=== PATIENT | male | born 1955 | race African-American/Black ===

== ENCOUNTER 2017-09-29 18:44 | Inpatient (IN) | payer MEDICARE, OTHER ==
[~2017-09-29] VITALS: Ht 190.5 cm; Wt 94.0 kg
[2017-09-29] MEDS ORDERED: NALOXONE HCL 0.4 MG/ML AMP IV PUSH PRN (22:15)
[2017-09-29] MEDS ORDERED: ACETAMINOPHEN 325 MG TAB PO PRN (22:15)
[2017-09-29] MEDS ORDERED: MAGNESIUM HYDROXIDE SUSP 30 ML CUP PO PRN (22:15)
[2017-09-29] MEDS ORDERED: ONDANSETRON HCL 4 MG/2 ML VIAL IVP PRN (22:15)
[2017-09-29] MEDS ORDERED: ACETAMINOPHEN/HYDROcodone 325 MG/10 MG TAB PO PRN (22:15)
[2017-09-29] MEDS ORDERED: BISACODYL 10 MG SUPP RECTAL PRN (22:15)
[2017-09-29] MEDS ORDERED: SENNOSIDES 8.6 MG TAB PO PRN (22:15)
[2017-09-29] MEDS ORDERED: SODIUM CHLORIDE 0.9% FLUSH 10 ML FLUSH IV FLUSH PRN (22:15)
[2017-09-29] MEDS ORDERED: LOSA50TA PO (22:24)
[2017-09-29] MEDS ORDERED: INSU1INJ5 SQ (22:24)
[2017-09-29] MEDS ORDERED: OXYC1TAB36 PO (22:24)
[2017-09-29] MEDS ORDERED: GADODIAMIDE PF 287 MG/ML 5 ML VIAL (for RAD MRI) IV PUSH ONE (23:43)
--- NOTE | 2017-09-29 23:43 | HHI.HP ---
[facility] Unknown Admission Diagnosis Spinal Metastatic Cancer with hemiparesis . 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 Marítnez is a 61 y/o male with a history of type 2 diabetes mellitus with peripheral neuropathy, hypertension, and hepatitis C (treatment completed 2 years ago) who presented to [facility] [place] transfer from [facility] in [place] for neurosurgical evaluation and treatment of widespread metastatic spinal cancer with hemiparesis. The patient is seen in his hospital room. He reports severe 10/10 back pain that radiates around to his chest that is unrelieved by [email or web address]. He states that his symptoms began one month ago with back pain radiating around to his chest. His symptoms persisted until he developed an inability to ambulate one week ago and he started to seek treatment at [facility]. He states they could not find anything wrong with him. He went to [facility] on Tuesday and was diagnosed with a "left lung infection" and given antibiotics. He says he returned to [place] on Tuesday because he was still too weak to walk. On Tuesday, he was admitted. He states that no one knows what is wrong with him. He denies fever, chills, nausea, vomiting, diarrhea, abdominal pain, urinary or fecal incontinence. He reports he had constipation on Tuesday and it was relieved with laxatives on Tuesday. He reports a 25 pound weight loss that is unintentional over the past 2 months. Review of Systems Except as stated in HPI: all other systems reviewed are Neg Past Family Social History Past Medical History Type 2 diabetes mellitus x 8 years Peripheral neuropathy secondary to diabetes Hypertension History of hepatitis C treated 2 years ago "Heat" related syncope (8-9 years ago)- never evaluated for, no recurrence . Past Surgical History Right knee arthroscopy 25 years ago . Reported Medications Reported Meds & Active Scripts Active Reported Oxycodone-Acetaminophen 10-325 mg Tab 1 Tab PO Q6HR Losartan (Losartan Potassium) 50 Mg Tab 50 Mg PO DAILY Levemir Flextouch Pen Inj (Insulin Detemir) 300 unit/3 ML Pen 30 Units SQ HS Allergies: Coded Allergies: No Known Allergies (Unverified , 09/29/17) Family History Mother with diabetes mellitus Father with hypertension and kidney failure Sister with diabetes mellitus . Social History Tobacco: states he smokes every now and again - one cigarette every few months Alcohol: was drinking 4 tallboy beers daily until 2 weeks ago Illicit Drugs: smoked cocaine as recently as two months ago, denies IV drug use . Physical Exam Physical Exam GENERAL: Well-nourished, well-developed patient; pleasant and cooperative. Tearful when discussing diagnosis. SKIN: Warm and dry. HEAD: Normocephalic. EYES: No scleral icterus. No injection or drainage. NECK: Supple, trachea midline. No JVD or lymphadenopathy. CARDIOVASCULAR: Regular rate and rhythm without murmurs, gallops, or rubs. RESPIRATORY: Breath sounds diminished at bases, equal bilaterally. No accessory muscle use. GASTROINTESTINAL: Abdomen soft, non-tender, nondistended. EXTREMITIES: No cyanosis, or edema. NEUROLOGICAL: Awake, alert, and oriented x 3. Hip flexion is 2/5 bilaterally, seems very slightly weaker on left than right; ankle flexion 4+/5. Hand lifts and cranes inspector bilaterally 5-/5. Shoulder shrug equal. . Laboratory Laboratory Tests Test 09/29/17 21:55 Nasal Screen MRSA (PCR) MRSA NOT DETECTED Imaging Last Impressions Thoracic Spine MRI 09/29/17 0000 Signed Impressions: Service Date/Time: September 23:08 - CONCLUSION: 1. There is widespread metastatic disease to the thoracic spine. At the level of T4 tumor extends into the spinal canal with at least moderate compression on the thoracic cord from the lateral aspect bilaterally. There is also extensive soft tissue tumor in the neural foramina bilaterally and in the paravertebral soft tissues at this level. 2. Questionable mild pathologic fracture of T8 and possibly T7. Alberto Moses MD Lumbar Spine MRI 09/29/17 0000 Signed Impressions: Service Date/Time: September 23:08 - CONCLUSION: 1. Widespread bony metastatic disease to the lumbar spine. There is soft tissue tumor invasion of the spinal canal at L2 with effacement of the lateral recesses bilaterally and encasement of the exiting right L2 nerve root. There is also extension of enhancing tumor into the paravertebral soft tissues. No acute fracture or spondylolisthesis. MD Karey Winston VTE Risk Assessment Caprini VTE Risk Assessment: Mod/High Risk (score >= 2) Caprini Risk Assessment Model Point Value = 1 Point Value = 2 Point Value = 3 Point Value = 5 Age 41-60 Minor surgery BMI > 25 kg/m2 Swollen legs Varicose veins or History of unexplained or recurrent spontaneous Oral contraceptives or hormone replacement Sepsis (< 1 month) Serious lung disease, including pneumonia (< 1 month) Abnormal pulmonary function Acute myocardial infarction Congestive heart failure (< 1 month) History of inflammatory bowel disease Medical patient at bed rest Age 61-74 Arthroscopic surgery Major open surgery (> 45 min) Laparoscopic surgery (> 45 min) Malignancy Confined to bed (> 72 hours) Immobilizing plaster cast Central venous access Age >= 75 History of VTE Family history of VTE Factor V Leiden Prothrombin [id number] Lupus anticoagulant Anticardiolipin antibodies Elevated serum homocysteine Heparin-induced thrombocytopenia Other congenital or acquired thrombophilia Stroke (< 1 month) Elective arthroplasty Hip, pelvis, or leg fracture Acute spinal cord injury (< 1 month) Prophylaxis Regimen Total Risk Factor Score Risk Level Prophylaxis Regimen 0-1 Low Early ambulation 2 Moderate Order ONE of the following: *Sequential Compression Device (SCD) *Heparin 5000 units SQ BID 3-4 Higher Order ONE of the following medications: *Heparin 5000 units SQ TID *Enoxaparin/Lovenox 40 mg SQ daily (WT < 150 kg, CrCl > 30 mL/min) *Enoxaparin/Lovenox 30 mg SQ daily (WT < 150 kg, CrCl > 10-29 mL/min) *Enoxaparin/Lovenox 30 mg SQ BID (WT < 150 kg, CrCl > 30 mL/min) AND/OR *Sequential Compression Device (SCD) 5 or more Highest Order ONE of the following medications: *Heparin 5000 units SQ TID (Preferred with Epidurals) *Enoxaparin/Lovenox 40 mg SQ daily (WT < 150 kg, CrCl > 30 mL/min) *Enoxaparin/Lovenox 30 mg SQ daily (WT < 150 kg, CrCl > 10-29 mL/min) *Enoxaparin/Lovenox 30 mg SQ BID (WT < 150 kg, CrCl > 30 mL/min) AND *Sequential Compression Device (SCD) Assessment and Plan Problem List: (1) 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 Martínez is a 61 y/o male with a history of type 2 diabetes mellitus with peripheral neuropathy, hypertension, and hepatitis C (treatment completed 2 years ago) who presented to [facility] [place] transfer from [facility] in [place] for neurosurgical evaluation and treatment of widespread metastatic spinal cancer with hemiparesis. Metastatic Spinal Cancer with unknown primary site - consult neurosurgery - consult oncology - Decadron 4 mg IV q6h - Oxycodone 10/325 q4h p.o. PRN pain > 4 - Morphine 4 mg IV q3h PRN breakthrough pain - continuous cardiac telemetry to monitor for arrhythmia - neurochecks q4h - VS q4h - NPO - discussed diagnosis and plan with patient Hypertension - resume home losartan - monitor trends in blood pressure and adjust treatment as indicated Type 2 DM - continue home Levemir - accuchecks AC and HS with low dose Novolog - monitor trends in blood glucose readings and adjust treatments as indicated - PRN hypoglycemia treatment protocol DVT prophylaxis - SCDs Discussed Condition With Dr. Sarkar, patient, and RN . Physician Certification 2 Midnight Certification Type: Admission for Inpatient Services Order for Inpatient Services The services are ordered in accordance with Medicare regulations or non- Medicare payer requirements, as applicable. In the case of services not specified as inpatient-only, they are appropriately provided as inpatient services in accordance with the 2-midnight benchmark. Estimated LOS (days): 7 days is the estimated time the patient will need to remain in the hospital, assuming treatment plan goals are met and no additional complications. Post-Hospital Plan: Not yet determined Ana Cristina Cohen Sep 29, 2017 23:43
[2017-09-30] VITALS (10 sets, daily range): BP systolic 144–152; BP diastolic 81–99; PULSE 74–87; RESP 12–25; TEMP 97.7–97.9; O2SAT 98–100
[2017-09-30] MEDS: DEXAMETHASONE SOD PHOS 4 MG/ML VIAL IV PUSH SCH ×4 (00:29→18:00)
--- NOTE | 2017-09-30 00:58 | RADRPT ---
EXAM DATE/TIME: 09/29/2017 23:08 [facility] COMPARISON: No previous studies available for comparison. INDICATIONS : Inability to ambulate. Cancer. CONTRAST: 18 cc Omniscan (gadodiamide) IV MEDICAL HISTORY : None. SURGICAL HISTORY : Right knee. ENCOUNTER: Initial ACUITY: 1 week PAIN SCORE: 5/10 LOCATION: Thoracic spine. TECHNIQUE: Multiplanar multisequence MRI of the thoracic spine was performed. FINDINGS: There is widespread bony metastatic disease throughout the thoracic spine. At the T4 level abnormal e nhancing tumor extends outside the vertebral body into the paravertebral soft tissues and into the sp inal canal there is at least moderate cord compression and effacement of the thecal sac around the co rd. There is also extension of tumor into the lateral recesses and neural foramina bilaterally. No other cord compression identified within the thoracic spine. Now suspected mild pathologic fractur es involving T7 and T8. No spondylolisthesis. CONCLUSION: 1. There is widespread metastatic disease to the thoracic spine. At the level of T4 tumor extends int o the spinal canal with at least moderate compression on the thoracic cord from the lateral aspect bi laterally. There is also extensive soft tissue tumor in the neural foramina bilaterally and in the pa ravertebral soft tissues at this level. 2. Questionable mild pathologic fracture of T8 and possibly T7. Alberto Moses MD on September 30, 2017 at 0:50 Board Certified Radiologist. This report was verified electronically.
--- NOTE | 2017-09-30 01:22 | RADRPT ---
EXAM DATE/TIME: 09/29/2017 23:08 [facility] COMPARISON: No previous studies available for comparison. INDICATIONS : Inability to ambulate. Cancer. CONTRAST: 18 cc Omniscan (gadodiamide) IV MEDICAL HISTORY : None. SURGICAL HISTORY : Right knee. ENCOUNTER: Initial ACUITY: 1 week PAIN SCORE: 5/10 LOCATION: Lower back. TECHNIQUE: Multiplanar multisequence MRI of the lumbar spine was performed with and without contrast. FINDINGS: There is widespread metastatic disease to the lumbar spine. At the level of L2 abnormal soft tissue e xtends into the paravertebral space and also into the spinal canal with moderate effacement of the la teral recesses bilaterally. There is also tumor encasement of the exiting right L2 nerve root at the level of the neural foramen. No acute fracture or spondylolisthesis. No discrete disc protrusion. Conus medullaris is intact. CONCLUSION: 1. Widespread bony metastatic disease to the lumbar spine. There is soft tissue tumor invasion of the spinal canal at L2 with effacement of the lateral recesses bilaterally and encasement of the exiting right L2 nerve root. There is also extension of enhancing tumor into the paravertebral soft tissues. No acute fracture or spondylolisthesis. lAberto Moses MD on September 30, 2017 at 1:17 Board Certified Radiologist. This report was verified electronically.
[2017-09-30] MEDS: SODIUM CHLOR 0.9% 1000 ML INJ 1,000 ML IV SCH ×2 (01:27→08:53)
[2017-09-30] MEDS: MORPHINE SULFATE 2 MG/ML INJ IV PUSH PRN ×2 (02:07→06:14)
[2017-09-30] MEDS ORDERED: GLUCAGON 1 MG/ML VIAL OTHER PRN (03:30)
[2017-09-30] MEDS ORDERED: DEXTROSE 50% IN WATER 50 ML VIAL(D50) IV PUSH PRN ×2 (03:30→14:45)
[2017-09-30] MEDS ORDERED: oxyCODONE/ACETAMINOPHEN 10 MG/325 MG TAB PO PRN (03:45)
--- NOTE | 2017-09-30 05:35 | RADRPT ---
EXAM DATE/TIME: 09/30/2017 04:58 [facility] COMPARISON: No previous studies available for comparison. INDICATIONS : Evaluate for pneumonia. MEDICAL HISTORY : Metastatic disease to the thoracic spine SURGICAL HISTORY : Right knee. ENCOUNTER: Initial ACUITY: 1 day PAIN SCORE: 0/10 LOCATION: Bilateral chest FINDINGS: A single view of the chest demonstrates linear atelectasis or scarring at the lung bases. No effusion . No pneumothorax. Tortuous aorta. Mild scoliosis. CONCLUSION: 1. Linear atelectasis or scarring at the lung bases. No effusion or pneumothorax. Alberto Moses MD on September 30, 2017 at 5:33 Board Certified Radiologist. This report was verified electronically.
[2017-09-30] MEDS ORDERED: oxyCODONE/ACETAMINOPHEN 10 MG/325 MG TAB PO SCH (06:00)
[2017-09-30 06:17] LABS: AUTOMATED NEUTROPHIL # 1.4 TH/MM3 (1.8-7.7); BASOPHIL % 0.5 % (0.0-2.0); EOSINOPHIL % 0.1 % (0.0-4.0); HEMATOCRIT 39.6 % (39.0-51.0); HEMOGLOBIN 13.6 GM/DL (13.0-17.0); LYMPH % 42.1 % (9.0-44.0); LYMPHOCYTE # 1.1 TH/MM3 (1.0-4.8); MEAN CORPUSCULAR HEMOGLOBIN 31.4 PG (27.0-34.0); MEAN CORPUSCULAR HGB CONC 34.5 % (32.0-36.0); MEAN PLATELET VOLUME 8.5 FL (7.0-11.0); MONO % 3.6 % (0.0-8.0); MONOCYTE # 0.1 TH/MM3 (0-0.9); NEUT % 53.7 % (16.0-70.0); PLATELET COUNT 238 TH/MM3 (150-450); RED BLOOD COUNT 4.34 MIL/MM3 (4.50-5.90); RED CELL DISTRIBUTION WIDTH 14.9 % (11.6-17.2); WHITE BLOOD COUNT 2.6 TH/MM3 (4.0-11.0)
[2017-09-30 06:41] LABS: ALKALINE PHOSPHATASE 134 U/L (45-117); TOTAL BILIRUBIN ADULT 0.5 MG/DL (0.2-1.0); TOTAL PROTEIN 9.4 GM/DL (6.4-8.2)
[2017-09-30 06:49] LABS: ALBUMIN 3.5 GM/DL (3.4-5.0); ALT (GPT) 70 U/L (12-78); AST (GOT) 83 U/L (15-37); BICARBONATE 23.5 MEQ/L (21.0-32.0); BLOOD UREA NITROGEN 13 MG/DL (7-18); CALCIUM 9.6 MG/DL (8.5-10.1); CHLORIDE 99 MEQ/L (98-107); CREATININE 0.87 MG/DL (0.60-1.30); GLOMERULAR FILTRATION RATE 108 ML/MIN (>89); GLUCOSE,RANDOM 390 MG/DL (74-106); SODIUM (NA) 132 MEQ/L (136-145)
--- NOTE | 2017-09-30 08:31 | PD.CONS ---
HPI Consult Requested By Reason for Consult Extensive metastatic disease burden involving the thoracic and lumbar spine with resultant weakness of the lower extremities. Primary Care Physician Unknown History of Present Illness Mr. Martínez is a 61-year-old male who wit history of hypertension and diabetes mellitus who developed increasing back pain. His pain started in the mid back and progressed to involve the anterolateral wall of his chest. He had multiple ER visits at [facility]. One week ago the pain worsened and he developed weakness in his legs. He reports not being able to stand or walk since Tuesday. He presented to the [facility] last night and underwent imaging studies of the lumbar vertebral bodies and was noted to have extensive metastases. He was found to have spinal cord compression and he was transferred to [facility] for neurosurgical evaluation. His legs are getting progressively weaker. He developed numbness in his chest and lower body. He underwent thoracic and lumbar spine MRI with and without contrast which revealed widespread metastatic disease to the thoracic spine with moderate to severe compression of the thoracic spinal cord at T4. Questionable pathologic fracture of T8 and T7. A lumbar vertebral body MRI with and without contrast revealed additional widespread bony metastatic disease with invasion of the spinal canal at the level of L2. There was extensive tumor extension was noted in the paravertebral soft tissues. Neurosurgical consultation was requested Review of Systems Constitutional: COMPLAINS OF: Fatigue, Dizziness, Change in appetite, DENIES: Diaphoretic episodes, Fever, Weight gain, Weight loss, Chills, Night Sweats Endocrine: DENIES: Heat/cold intolerance, Polydipsia, Polyuria, Polyphagia Eyes: DENIES: Blurred vision, Diplopia, Eye inflammation, Eye pain, Vision loss , Photosensitivity, Double Vision Ears, nose, mouth, throat: DENIES: Tinnitus, Hearing loss, Vertigo, Nasal discharge, Oral lesions, Throat pain, Hoarseness, Ear Pain, Running Nose, Epistaxis, Sinus Pain, Toothache, Odynophagia Respiratory: DENIES: Apneas, Cough, Snoring, Wheezing, Hemoptysis, Sputum production, Shortness of breath Cardiovascular: DENIES: Chest pain, Palpitations, Syncope, Dyspnea on Exertion , PND, Lower Extremity Edema, Orthopnea, Claudication Gastrointestinal: DENIES: Abdominal pain, Black stools, Bloody stools, Constipation, Diarrhea, Nausea, Vomiting, Difficulty Swallowing, Anorexia Genitourinary: DENIES: Sexual dysfunction, Urinary frequency, Urinary incontinence, Urgency, Hematuria, Dysuria, Nocturia, Penile Discharge, Testicular Pain, Testicular Swelling Musculoskeletal: COMPLAINS OF: Joint pain, Muscle aches, Back pain, Neck pain, DENIES: Stiffness, Joint Swelling Hematologic/lymphatic: DENIES: Bruising, Lymphadenopathy Immunologic/allergic: DENIES: Eczema, Urticaria Neurologic: COMPLAINS OF: Localized weakness, DENIES: Abnormal gait, Headache, Paresthesias, Seizures, Speech Problems, Tremor, Poor Balance Psychiatric: DENIES: Anxiety, Confusion, Mood changes, Depression, Hallucinations, Agitation, Suicidal Ideation, Homicidal Ideation, Delusions Past Family Social History Allergies: Coded Allergies: No Known Allergies (Unverified , 09/29/17) Past Medical History 1. arterial Hypertension. 2. Type 2 diabetes. Past Surgical History Arthroscopic right knee surgery about 25 years ago. Colonoscopy Reported Medications Mother is living; she has heart disease. Father several years ago of heart and kidney failure. Active Ordered Medications He lives at home with his mother. He has three grown children. He is single. 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 Occasional smoker. He has never been a daily smoker. He reports drinking about 4 cans of beer daily. Physical Exam Vital Signs Vital Signs Date Time Temp Pulse Resp B/P (MAP) Pulse Ox O2 Delivery O2 Flow Rate FiO2 09/30/17 06:19 15 09/30/17 06:00 87 09/30/17 04:00 97.9 79 21 150/81 (104) 98 09/30/17 04:00 87 09/30/17 02:00 84 09/30/17 00:00 97.7 83 25 144/90 (108) 100 09/30/17 00:00 83 Physical Exam The patient is alert, awake and oriented to time, place and person. Speech is fluent. Higher cognitive functions are normal. Cranial nerve examination demonstrates the pupils to be equal, round, and reactive to light. Extra-ocular movements are intact. Facial motor and sensory function are normal and symmetrical. Gross hearing is intact, bilaterally. The uvula is midline and elevates symmetrically with the soft palate. Sternocleidomastoid and trapezius muscles have normal and symmetrical strength. Other cranial nerves are intact. Neck is soft and supple. Cervical spine has a full range of motion in anterior flexion, extension, lateral bending, and rotation without pain. There is no tenderness to palpation to the spinous processes or paraspinal muscles. Muscle testing reveals normal bulk and increased tone with spasticity. Muscle strength is 5/5 in all muscle groups of both upper extremities including deltoid , biceps, triceps, brachioradialis, wrist extension and dental billing specialist. In the lower extremities, strength is 2/5 in both iliopsoas, quadriceps, hamstrings, plantar flexion, dorsiflexion, and extensor hallicus longus. Left lower extremity is worse than the right. Sensory examination is intact to light touch and sharp/dull discrimination in both upper extremities, with a sensory level at T4-T6 Deep tendon reflexes are 2+ and symmetrical in the biceps, triceps, and brachioradialis, bilaterally, in the upper extremities. In the lower extremities , the patellar and Achilles are 3+, bilaterally. There is a bilateral Babinsky. There is no clonus Cerebellar examination is intact to [id number] test, rapid rhythmic alternating motion. There is no dysmetria Lungs are clear Heart regular rhtythm and rate Skin dry and warm Laboratory Laboratory Tests Test 09/29/17 21:55 09/30/17 04:48 Nasal Screen MRSA (PCR) MRSA NOT DETECTED White Blood Count 2.6 Red Blood Count 4.34 Hemoglobin 13.6 Hematocrit 39.6 Mean Corpuscular Volume 91.0 Mean Corpuscular Hemoglobin 31.4 Mean Corpuscular Hemoglobin Concent 34.5 Red Cell Distribution Width 14.9 Platelet Count 238 Mean Platelet Volume 8.5 Neutrophils (%) (Auto) 53.7 Lymphocytes (%) (Auto) 42.1 Monocytes (%) (Auto) 3.6 Eosinophils (%) (Auto) 0.1 Basophils (%) (Auto) 0.5 Neutrophils # (Auto) 1.4 Lymphocytes # (Auto) 1.1 Monocytes # (Auto) 0.1 Eosinophils # (Auto) 0.0 Basophils # (Auto) 0.0 CBC Comment AUTO DIFF Differential Comment AUTO DIFF CONFIRMED Blood Urea Nitrogen 13 Creatinine 0.87 Random Glucose 390 Total Protein 9.4 Albumin 3.5 Calcium Level 9.6 Alkaline Phosphatase 134 Aspartate Amino Transf (AST/SGOT) 83 Alanine Aminotransferase (ALT/SGPT) 70 Total Bilirubin 0.5 Sodium Level 132 Potassium Level 4.3 Chloride Level 99 Carbon Dioxide Level 23.5 Anion Gap 10 Estimat Glomerular Filtration Rate 108 Result Diagram: 09/30/178 09/30/178 Imaging Last 48 hours Impressions Chest X-Ray 09/30/17 0000 Signed Impressions: Service Date/Time: Saturday, September 30, 2017 04:58 - CONCLUSION: 1. Linear atelectasis or scarring at the lung bases. No effusion or pneumothorax. Alberto Moses MD Thoracic Spine MRI 09/29/17 0000 Signed Impressions: Service Date/Time: September 23:08 - CONCLUSION: 1. There is widespread metastatic disease to the thoracic spine. At the level of T4 tumor extends into the spinal canal with at least moderate compression on the thoracic cord from the lateral aspect bilaterally. There is also extensive soft tissue tumor in the neural foramina bilaterally and in the paravertebral soft tissues at this level. 2. Questionable mild pathologic fracture of T8 and possibly T7. Alberto Moses MD Lumbar Spine MRI 09/29/17 0000 Signed Impressions: Service Date/Time: September 23:08 - CONCLUSION: 1. Widespread bony metastatic disease to the lumbar spine. There is soft tissue tumor invasion of the spinal canal at L2 with effacement of the lateral recesses bilaterally and encasement of the exiting right L2 nerve root. There is also extension of enhancing tumor into the paravertebral soft tissues. No acute fracture or spondylolisthesis. Alberto Moses MD Assessment and Plan Assessment and Plan Mr. Martínez is a 61-year-old male who has been referred to [facility] from [facility] for further work-up and evaluation of spinal cord compression. Progressive lower paraparesis Attending Statement Neuro Spinal cord compression at the level of T4 with spinal cord canal encroachment at L2 as well, however, his symptoms are related to the cord compression at T4 I reviewed his MRI of the cervical spine. No mets. He will need MRI of the brain in the future He has a severe thoracic myelopathy with paraparesis. His PSA is normal. He is deteriorating rapidly clinically. I recommend an urgent surgical decmpression of the thoracic spinal cord, with possible arthrodhesis. We have discussed the details including the [id number] details of the surgical procedure, its indications, alternatives, risks, and potential complications. Risks and potential complications include, but are not limited to, infection, blood loss, CSF leak, partial or complete loss of sight in one or both eyes, paresis, paralysis, permanent pain or difficulty swallowing, loss of bowel or bladder function, complications from anesthesia, blood clot, stroke, myocardial infarction, or even . I have ordered CT imaging of the chest, abdomen and pelvis for metastatic workup have requested a PSA level. He will need tissue sampling for staging and diagnostic purposes. I have consulted radiation oncologist and siccussed the case with Jacqiu Lancaster. Following the decompression, he will need radiation to help control his metastatic disease to the spine Continue dexamethasone PT evaluation Pulmonary.. Continue aggressive pulmonary toilette, nasotracheal suction, and breathing treatments with nebulizers. Nutrition. NPO Renal. monitor closely urine output, BUN and creatinine Endocrine. Monitor serial Acu checks and SSI as needed in detail ID monitor for signs of infection Protonix for stress ulcer prophylaxis Hermann lawrence and SCD's for DVT prophylaxis. Bobo Gillette MD Sep 30, 2017 08:31
[2017-09-30] MEDS: SODIUM CHLORIDE 0.9% FLUSH 10 ML FLUSH IV FLUSH SCH ×2 (08:52→21:21)
[2017-09-30] MEDS: LOSARTAN 50 MG TAB PO SCH (08:52)
[2017-09-30] MEDS ORDERED: DIATRIZOATE MEGLUM/DIATRIZOATE SOD 9 ML CUP PO ONE (09:00)
[2017-09-30] MEDS ORDERED: IOHEXOL 350 MG/ML 10 ML VIAL (for RAD DIAG) IVCONTRAST ONE (09:42)
--- NOTE | 2017-09-30 09:53 | RADRPT ---
EXAM DATE/TIME: 09/30/2017 09:27 [facility] COMPARISON: MRI THORACIC SPINE W & W/O CONTRAST, September 29, 2017, 23:08. INDICATIONS : Spinal metastases. RADIATION DOSE: 22.95 CTDIvol (mGy) MEDICAL HISTORY : Diabetes mellitus type 2. Hypertension. SURGICAL HISTORY : None. ENCOUNTER: Initial ACUITY: 1 day PAIN SCALE: 0/10 LOCATION: neck TECHNIQUE: Volumetric scanning of the cervical spine was performed. Multiplanar reconstructions in the sagittal, coronal and oblique axial planes were performed. Using automated exposure control and adjustment o f the mA and/or kV according to patient size, radiation dose was kept as low as reasonably achievable to obtain optimal diagnostic quality images. DICOM format image data is available electronically f or review and comparison. FINDINGS: There is no acute fracture or prevertebral soft tissue swelling. No significant spinal stenosis is no kayli. Cervical spondylosis is noted at C5-6, C6-7, and C7-T1. The bony relationship and alignment betw een C1 and C2 is well maintained. Some mottling is noted within the lower cervical spine. MRI of the cervical spine with and without contrast would be much more sensitive to rule out metastatic disease if clinical indicated. The bony relationship and alignment between C1 and C2 is well maintained. Mild left neural foraminal narrowing is noted C5-6, C6-7, and C7-T1. CONCLUSION: 1. Some mottling of the lower cervical spine. MRI of the cervical spine with and without contrast wou ld be much more sensitive to rule out metastatic disease if clinically indicated. 2. No acute fracture or prevertebral soft tissue swelling. 3. Cervical spondylosis at C5-6, C6-7 and C7-T1. 4. Mild left neural foraminal narrowing at C5-6, C6-7 and C7-T1. Michael Cuevas MD on September 30, 2017 at 9:44 Board Certified Radiologist. This report was verified electronically.
--- NOTE | 2017-09-30 10:02 | RADRPT ---
EXAM DATE/TIME: 09/30/2017 09:33 [facility] COMPARISON: MRI THORACIC SPINE W & W/O CONTRAST, September 29, 2017, 23:08. MRI LUMBAR SPINE W & W/O CONTRAST, [facility] 2017, 23:08. INDICATIONS : Spinal metastases. IV CONTRAST: 95 cc Omnipaque 350 (iohexol) IV ; Cumulative dose for multiple exams. ORAL CONTRAST: No oral contrast ingested. RADIATION DOSE: 13.98 CTDIvol (mGy) ; Combined studies - Thorax/Abdomen/Pelvis MEDICAL HISTORY : Diabetes mellitus type 2. Hypertension. SURGICAL HISTORY : None. ENCOUNTER: Initial ACUITY: 1 day PAIN SCALE: 0/10 LOCATION: abdomen TECHNIQUE: Volumetric scanning of the abdomen and pelvis was performed. Using automated exposure control and ad justment of the mA and/or kV according to patient size, radiation dose was kept as low as reasonably achievable to obtain optimal diagnostic quality images. DICOM format image data is available electro nically for review and comparison. FINDINGS: Minimal bibasilar parenchymal changes are evident. Mild compensated cardiomegaly The liver and gallbladder are unremarkable Spleen and pancreas appear normal The adrenal glands are normal Symmetric renal function without renal mass There is no adrenal adenopathy Pelvic contents are unremarkable Review of bone windows reveals scattered lucencies throughout the thoracolumbar spine CONCLUSION: Widespread bony metastatic disease. Site of primary is not identified in the abdomen or pelvis. Ant Rod MD FACR on September 30, 2017 at 9:58 Board Certified Radiologist. This report was verified electronically.
--- NOTE | 2017-09-30 10:05 | RADRPT ---
EXAM DATE/TIME: 09/30/2017 09:33 [facility] COMPARISON: No previous studies available for comparison. INDICATIONS : Spinal metastases. IV CONTRAST: 95 cc Omnipaque 350 (iohexol) IV ; Cumulative dose for multiple exams. RADIATION DOSE: 13.98 CTDIvol (mGy) ; Combined studies - Thorax/Abdomen/Pelvis MEDICAL HISTORY : Diabetes mellitus type 2. Hypertension. SURGICAL HISTORY : None. ENCOUNTER: Initial ACUITY: 1 day PAIN SCALE: 0/10 LOCATION: chest TECHNIQUE: Volumetric scanning of the chest was performed. Using automated exposure control and adjustment of t he mA and/or kV according to patient size, radiation dose was kept as low as reasonably achievable to obtain optimal diagnostic quality images. DICOM format image data is available electronically for review and comparison. Follow-up recommendations for detected pulmonary nodules are based at a minimum on nodule size and pa tient risk factors according to Fleischner Society Guidelines. FINDINGS: Bibasilar parenchymal changes without evidence for lung primary. There is minimal left axillary adenopathy. There is no mediastinal adenopathy. Review of bone windows reveals extensive widespread metastatic disease. Large paravertebral mass is seen at the T6 level. CONCLUSION: Widespread bony metastatic disease described in detail on MRI of the thoracic and lumbar spine. Sagi ttal primary is not evident in the chest Minimal bibasilar parenchymal changes Minimal nonspecific axillary adenopathy.. Ant Rod MD FACR on September 30, 2017 at 10:01 Board Certified Radiologist. This report was verified electronically.
--- NOTE | 2017-09-30 10:06 | MB ---
cc: LATHA BLANCA MD DATE OF CONSULTATION 09/30/2017 DATE OF 1955 Consult requested by the ER physicians. REASON FOR CONSULTATION Extensive metastatic disease burden involving the thoracic and lumbar spine with resultant weakness of the lower extremities. Primary concern is for widespread underlying neoplasm. CHIEF COMPLAINT Mr. Martínez reports a two-month history of progressive back pain which started in the lumbar area and then spread to his upper back as well. He reports developing weakness of his legs one week ago to the point where he has not been able to stand. HISTORY OF PRESENT ILLNESS Mr. Martínez is a 61-year-old male from [place], [place]. Mr. Martínez reports having a history of hypertension and diabetes and follows with the [facility]. He tells me he had been in reasonably good health up until about two months ago. He began to notice increasing back pain which initially started in the lower back and then progressed to involve his chest. He had multiple ER visits at [facility] for this. One week ago the pain worsened and he developed weakness in his legs. He reports not being able to stand or walk. He presented to the [facility] last night and underwent imaging studies of the lumbar vertebral bodies and was noted to have extensive metastases. He was assessed to have spinal cord compression and was transferred to [facility] for neurosurgical evaluation. At [facility] on 09/29/2017 he underwent thoracic and lumbar spine MRI with and without contrast which revealed widespread metastatic disease to the thoracic spine with moderate compression of the thoracic spinal cord. Questionable pathologic fracture of T8 and T7. A lumbar vertebral body MRI with and without contrast revealed additional widespread bony metastatic disease with invasion of the spinal canal at the level of L2. Extensive tumor extension was noted in the paravertebral soft tissues as well. Neurosurgical evaluation is pending at this time. PAST MEDICAL HISTORY 1. Hypertension. 2. Type 2 diabetes. PAST SURGICAL HISTORY Arthroscopic right knee surgery about 25 years ago. ALLERGIES No known drug allergies. HEALTH MAINTENANCE He had a colonoscopy earlier this week which was reported to be normal. FAMILY HISTORY Mother is living; she has heart disease. Father several years ago of heart and kidney failure. SOCIAL HISTORY The patient lives at home with his mother. He has three grown children. He is single. 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 He reports being an occasional smoker. He has never been a daily smoker. He reports drinking about 4 cans of beer daily. ALLERGIES Current inpatient medications: 1. Dexamethasone 4 mg IV q.6h. 2. Oxycodone/acetaminophen 10/325 every 4 hours as needed for pain. 3. Senokot. 4. Colace. 5. Low-dose insulin sliding scale. 6. Losartan 50 mg p.o. daily. 7. Insulin Levemir 30 units subcu q.h.s. 8. Sodium chloride 100 cc per hour. REVIEW OF SYSTEMS A 13-point review of systems is obtained and the following are the pertinent positives and negatives: CONSTITUTIONAL: Weakness, loss of appetite, 25-pound weight loss over the past 3 months. He denies fevers or chills. HEENT: Denies headaches, blurry vision, difficulty swallowing, soreness of throat. RESPIRATORY: Denies difficulty breathing, cough or hemoptysis. He does report chest pain which radiates from his upper back. CARDIOVASCULAR: Denies angina-like chest pain, PND, orthopnea. Denies lower extremity swelling. GASTROINTESTINAL: Denies nausea, vomiting, diarrhea hematochezia, melena, abdominal distention. GENITOURINARY: No complaints of dysuria or hematuria. CENTRAL NERVOUS SYSTEM: Reports leg weakness but denies numbness. MUSCULOSKELETAL: Please see HPI for severe back pain. PHYSICAL EXAMINATION VITAL SIGNS: Temperature 97.9 degrees Fahrenheit, heart rate 87 beats per minute, respiratory rate 15, blood pressure 150/81, O2 sat 98% on room air. GENERAL APPEARANCE: Mr. Martínez is a 61-year-old male. He is lying in bed. He appears to be in no acute distress and has a pleasant disposition. HEENT: Head is atraumatic, normocephalic. Conjunctivae are not pale. Sclerae anicteric. EOMI. PERRLA. No pharyngeal erythema. NECK: No palpable cervical or supraclavicular lymphadenopathy. LUNGS: Good air movement bilaterally. No added breath sounds. HEART: Regular rate and rhythm, S1, S2. No obvious murmurs, rubs or gallops. ABDOMEN: Thin, soft, nontender, nondistended. No palpable organ enlargement, specifically hepatosplenomegaly. EXTREMITIES: No pretibial edema. No calf tenderness. NEUROLOGIC: He has decreased motor strength of the left leg, slightly decreased motor strength of the right leg. He has no other focal sensory or motor deficits. MUSCULOSKELETAL: Tenderness over the back. LABORATORY FINDINGS CBC dated 09/30/2017: WBC count 2.6, hemoglobin 13.6 gm/dl, hematocrit 40%, platelet count 238, absolute neutrophil count 1.4. Chemistries: Sodium 132, potassium 4.3, chloride 99, bicarb 23.5, BUN 13, creatinine 0.87, EGFR 108, random glucose 290, calcium 9.6, total bilirubin 0.5, AST 83, ALT 70, alkaline phosphatase 134, total protein 9.4, albumin 3.5. IMAGING STUDIES MRI of the thoracic and lumbar vertebral bodies indicates widespread bony metastatic disease with tumor extending at the level of T4 into the spinal canal with at least moderate compression of the thoracic spinal cord. Questionable pathologic fracture of T8 and possibly T7. L2 vertebral body effacement with invasion of the spinal canal at the level of L2. Also enhancing tumor into the paravertebral soft tissues. Chest x-ray dated 09/30/2017 indicates linear atelectasis and scarring at the lung bases. ASSESSMENT Mr. Martínez is a 61-year-old male who has been referred to [facility] from [facility] for further work-up and evaluation of spinal cord compression. The patient reports having symptoms of progressive lower and upper back pain for the past two months. For the past one week he has had leg weakness and has not been able to ambulate due to the pain and weakness. He was transferred to our facility for neurosurgical evaluation. The patient reports no previous history of oncologic diagnoses. RECOMMENDATIONS 1. Spinal cord compression at the level of T4 with spinal cord canal encroachment at the level of L2 as well: I have requested CT imaging of the chest, abdomen and pelvis to further identify visceral disease burden. I have requested a PSA level as I am concerned he may have an underlying prostate carcinoma which is metastatic. He will need tissue sampling for staging and diagnostic purposes. 2. I have consulted our radiation oncologist as well to evaluate this patient in case he may require urgent radiation to help control his metastatic disease burden and to ultimately decrease the risk of progression of his spinal cord compression. 3. Continue dexamethasone for the time being. 4. Await neurosurgical intervention/evaluation. MD TAINA Anrdews/MAXIMILIAN /7:37 AM /9:40 AM
[2017-09-30] MEDS: INSULIN ASPART SUPPLEMENTAL SCALE SQ SCH ×2 (10:25→12:00)
--- NOTE | 2017-09-30 10:25 | RADRPT ---
EXAM DATE/TIME: 09/30/2017 09:33 [facility] COMPARISON: MRI THORACIC SPINE W & W/O CONTRAST, September 29, 2017, 23:08. INDICATIONS : Spinal metastases. IV CONTRAST: 96 cc Omnipaque 350 (iohexol) IV ; Cumulative dose for multiple exams. RADIATION DOSE: ; Reconstructed from previous dataset, no dose MEDICAL HISTORY : Hypertension. Diabetes mellitus type 2. SURGICAL HISTORY : None. ENCOUNTER: Initial ACUITY: 1 day PAIN SCALE: 5/10 LOCATION: Bilateral Paraspinal TECHNIQUE: Volumetric scanning of the thoracic spine was performed. Multiplanar reconstructions in the sagittal , coronal and oblique axial planes were performed. Using automated exposure control and adjustment o f the mA and/or kV according to patient size, radiation dose was kept as low as reasonably achievable to obtain optimal diagnostic quality images. DICOM format image data is available electronically fo r review and comparison. FINDINGS: Minimal compression deformities are noted involving T6, T7, and T8. The known widespread marrow infil tration throughout the thoracic spine is much better visualized on the recent MRI. Kyphosis of the th oracic spine is noted. Scoliosis of the thoracic spine is also noted. Degenerative changes are noted. Paravertebral soft tissue mass extends outside the T4 vertebral body bilaterally. Soft tissue mass a lso results in spinal stenosis at the T4 level. CONCLUSION: Minimal compression deformities at T6, T7 and T8. Known widespread marrow infiltration throughout the thoracic spine is much better visualized on recent MRI. Paravertebral soft tissue mass at T4 results in some degree of spinal stenosis and extends along the lateral aspects of the vertebral body bilate rally. Scoliosis and degenerative changes of the thoracic spine. Michael Cuevas MD on September 30, 2017 at 10:15 Board Certified Radiologist. This report was verified electronically.
[2017-09-30] MEDS ORDERED: ceFAZolin INJ 1,000 MG VIAL IV ONE ×2 (12:00→18:25)
[2017-09-30] MEDS ORDERED: ONDANSETRON HCL 4 MG/2 ML VIAL IV ONE (12:00)
[2017-09-30] MEDS ORDERED: ROCURONIUM INJ 50 MG/5 ML SYRINGE IV PUSH ONE (12:00)
[2017-09-30] MEDS ORDERED: NEOSTIGMINE 5 MG/5 ML SYRINGE IV PUSH ONE (12:00)
[2017-09-30] MEDS ORDERED: PHENYLEPH/NS 1000 MCG/10 ML SYR IV ONE (12:00)
[2017-09-30] MEDS ORDERED: LIDOCAINE HCL 1% PF 5 ML SYRINGE OTHER ONE (12:00)
[2017-09-30] MEDS ORDERED: PHENYLEPHRINE HCL 10 MG/ML VIAL IV ONE (12:00)
[2017-09-30] MEDS ORDERED: DEXAMETHASONE SOD PHOS 4 MG/ML VIAL IV ONE (12:00)
[2017-09-30] MEDS ORDERED: NORMOSOL R INJ 3,000 ML IV ONE (12:00)
[2017-09-30] MEDS ORDERED: ePHEDrine/NS 25 MG/5 ML SYRINGE IV ONE (12:00)
[2017-09-30] MEDS ORDERED: GLYCOPYRROLATE 1 MG/5 ML SYRINGE IV PUSH ONE (12:00)
[2017-09-30] MEDS ORDERED: PROPOFOL 200 MG/20 ML AMP IV ONE (12:00)
[2017-09-30] MEDS ORDERED: PROPOFOL 500 MG/50 ML INJ 200 ML ONE (12:04)
[2017-09-30] MEDS ORDERED: ACETAMINOPHEN 1000 MG/100 ML 100 ML IV ONE (12:04)
[2017-09-30] MEDS ORDERED: HYDROmorphone HCL PF 2 MG/ML VIAL ONE (12:40)
--- NOTE | 2017-09-30 13:42 | MB ---
cc: LATHA DURON MD KROCHAK, RONALD J. M.D. VINAS, FEDERICO C. M.D. DATE OF : 1955 DATE OF CONSULTATION: 09/30/2017 REASON FOR CONSULTATION: This patient is being seen at the request of the referring physicians to give opinion and advice regarding use of radiation treatment for this gentleman's apparent metastatic cancer. HISTORY OF PRESENT ILLNESS This is a gentleman who lives in [facility]. Her EPO he reports a history of progressive pain over the past several months starting in his low back and progressively rising. This pain worsens and he began to develop weakness in his lower limbs. He subsequently presented to [facility] where diagnostic imaging suggested a possible cord compression. He was transferred to this facility. This gentleman underwent a series of investigations which included abdominal pelvic CT, CT scan of the chest, a cervical spine CT, a throacic spine CT, a lumbar spine and thoracic spine MRI. The thoracic spine MRI revealed widespread metastatic disease to the thoracic spine at the level of T4 tumor extends into the spinal canal with at least moderate compression of the thoracic vertebrae from the lateral aspect bilaterally. There is also extensive soft tissue tumor in the neural foramina bilaterally and in the paravertebral soft tissue. There is a questionable mild pathologic fracture in T7-T8. Lumbar spine MRI showed widespread bony metastatic disease to the lumbar spine. There is soft tissue tumor invasion of the spinal canal at L2 with effacement of the lateral recess bilaterally encasement of the existing right L2 nerve root. There is also extension of enhancing tumor into the paravertebral soft tissues. His CT scan the abdomen and pelvis reported widespread bony metastatic disease site of the primary was not identified. His CT scan of the chest revealed widespread bony metastatic disease primary is not evident on the chest there was minimal by a basilar parenchymal changes, minimal nonspecific axillary adenopathy. This patient was discussed over the telephone with both Dr. Gillette and Dr. Duron. Because there was no previous diagnosis of cancer and Dr. Gillette assessed that this gentleman was developing progressive leg weakness. It was elected to take him to the operating room today for decompression of the thoracic spine. Blood work revealed an AST elevated at 83 and alkaline phosphatase elevated at 134. His total protein 79.4 and his PSA within normal range of 0.11. PAST MEDICAL HISTORY/PAST SURGICAL HISTORY: The past medical surgical history is unremarkable. 1. Hypertension 2. Type 2 diabetes 3. Three arthroscopic surgery of his right knee. ALLERGIES NOT LISTED IN THE ELECTRONIC MEDICAL RECORD. FAMILY HISTORY AND SOCIAL HISTORY There is appears to be no family history of malignancy. He currently lives with his mother. 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 MEDICATIONS 1. Dexamethasone started Hospital 4 mg IV q.6 h. 2. Oxycodone / Acetaminophen and 10 / 325 q.4 h for pain 3. Senokot. 4. Colace 5. Insulin by sliding scale. 6. Losartan 50 mg daily. 7. Insulin. 8. Levemir 30 units at bedtime. ASSESSMENT AND PLAN: This gentleman has not been seen by myself were examined as he was taken to the operating room just prior to my arrival on the floor. I have taken the above from the notes in the hospital chart and the review of his radiology both from the reports and my personal review. In my discussion with Dr. Duron and Dr. Gillette I did agree with the approach. I believe decompression at the T4-5 level is necessary to give this gentleman his best chance of being able to walk and to recover fully in the future. It will also allow us to have tissue. After 7-10 days, we would need to start palliative radiation treatment both to the thoracic spine and the area at L2 where he has encroachment on the nerve roots. Undoubtedly he will require chemotherapy depending on the final pathology. We will be very happy to start his radiation treatment here, if he does get transferred back to [place] his radiation treatment can be delivered locally as can his chemotherapy. I will follow this gentleman while in the hospital. Any questions or concerns please do not hesitate to contact me. MD LEWIS Graf/dequan /12:34 PM /1:14 PM
[2017-09-30] MEDS ORDERED: INSULIN REGULAR 100 UNITS/100 ML NS ALGORITHM 2 IV PRN ×2 (14:45)
[2017-09-30] MEDS ORDERED: ceFAZolin 2 GM PREMIX 50 ML ONE (14:54)
[2017-09-30] MEDS ORDERED: GELFOAM SIZE 100 ONE (14:54)
[2017-09-30] MEDS ORDERED: THROMBIN (TOPICAL) 5,000 UNIT VIAL ONE (14:54)
[2017-09-30] MEDS ORDERED: GENTAMICIN SULFATE 80 MG/2 ML VIAL ONE (14:54)
[2017-09-30] MEDS ORDERED: GELATIN POWDER 1 GM PACKET ONE (14:54)
[2017-09-30] MEDS ORDERED: BUPIVACAINE/EPINEPHRINE 0.5% PF 30 ML VIAL ONE (14:56)
[2017-09-30] MEDS ORDERED: VANCOMYCIN HCL 1000 MG VIAL ONE (14:56)
[2017-09-30] MEDS ORDERED: MIDAZOLAM HCL 2 MG/2 ML VIAL ONE (15:22)
--- NOTE | 2017-09-30 16:44 | HHI.PR ---
Addendum to Inpatient Note Additional Information Reviewed chart. Patient was not in the room when attempted to see him. He went to radiology or radiation oncology. Toribio Valadez DO Sep 30, 2017 16:44
[2017-09-30] MEDS ORDERED: DO NOT ADM ANY ANTICOAGULANT DRUGS PRN (18:33)
[2017-09-30] MEDS: NS + KCL 20 MEQ INJ 1,000 ML IV SCH (18:56)
[2017-09-30] MEDS ORDERED: MORPHINE SULFATE 4 MG/ML INJ IV PUSH PRN (19:00)
[2017-09-30] MEDS ORDERED: ACETAMINOPHEN 325 MG TAB PO PRN (19:00)
[2017-09-30] MEDS ORDERED: ACETAMINOPHEN/HYDROcodone 325 MG/10 MG TAB PO PRN (19:00)
--- NOTE | 2017-09-30 19:03 | RADRPT ---
EXAM DATE/TIME: 09/30/2017 15:48 [facility] COMPARISON: No previous studies available for comparison. INDICATIONS : Fusion T3 to T5 with laminectomy at T4. MEDICAL HISTORY : Metastatic disease thoracic spine. SURGICAL HISTORY : Right knee. ENCOUNTER: Subsequent ACUITY: 3 days PAIN SCORE: Non-responsive. LOCATION: Thoracic spine. FINDINGS: A single lateral view of the thoracic spine was performed. A there appears to be in good alignment of the visualized portion of the thoracic spine with internal fixation devices in place.. CONCLUSION: Good alignment on this postoperative study. Burton Duncan MD on September 30, 2017 at 19:00 Board Certified Radiologist. This report was verified electronically.
--- NOTE | 2017-09-30 19:11 | PD.OP ---
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 He had multiple spinal metastases and severe stenbosis at T4-5 with compression of the spinal cord. He was getting rapidly worse. An urgent surgical decompression was indicated. The [id number] details of the procedure, indications, alternatives, risks and potential complications were fully discussed with the patient. The patient fully understood. All her questions were answered. No guarantees were given. She voiced requesting the procedure and provided informed consents. The patient was offered the alternative of delaying the procedure and continuing with nonsurgical management. DETAILS OF THE SURGICAL PROCEDURE After the induction of general anesthesia, endotracheal intubation was performed. Electrodes were placed for electrophysiological monitoring of te somatosensorial evoked potentials, EMG, and motor evoked potentials prior to the intubation and kept thorough the procedure. A Evangelista catheter, bilateral AICHA hose, and sequential compression devices were placed and kept throughout the procedure. The patient was carefully log-rolled to the prone position on a Thanh table. All pressure points were carefully padded with eggcrate mattress. The eyes were tapped shut after ointment was applied by the anesthesiologist to prevent corneal abrasion. The head was supported by a foam pad, with special care to avoid pressure over the eyes. A Iggy hugger was placed over the exposed lower body to maintain control of the core body temperature. The electrophysiological team placed the needles and electrodes in their proper location and baseline SSEP's and motor evoked potentials were registered. The posterior thoracic region was prepped and draped in the usual sterile fashion. A localizing X-ray was performed with the C-arm, with Ap and lateral xray views. A medial incision was outlined from the spinous process of T4 down to T5. Surgical Approach A midline skin incision was made with a #10 blade. Dissection was carried out through the posterior cervical fascia with a Bovie. The spinous process of T4 and T5 were exposed and a subperiosteal dissection was performed over the spinous process, lamina lateral masses of T4 and T5. Bilateral self retaining retractors were placed on incision. Surgical decompression The operative microscope was draped in the usual sterile fashion and brought to the field. The rest of the surgical procedure was performed using microdissection technique with the exception of the closure. Under the operative microscope, the laminas at T4 and T5 and the spinous processes were carefully drilled using the TPS drill with a 5m cutting yanique. The ligamentum Flavum and joint facets were carefully removed. A large amount of epidural tumor was seen, causing severe compression of the spinal cord. The tumor was invading the bone and pedicles which were very soften. The tumor was carefully removed with a 2mm thin foot plate Kerrison. The incision was irrigated with basic ortho solution. A specimen was sent for hystopathological annlysis. 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 Given the poor condition of the bones and instability, transpedicular screws were placed on the right side at T3 to T5. This was started with a Giamshetti needle followed by the use of a silver wire. A tap was used to create the threads for the screws. Finally bilateral transpedicular screws were carefully placed bilaterally at T3 to T5 under fluoroscopic visualization. An appropriate purchase was achieved with all screws. The position of each screw was assessed anatomically with an AP, lateral, oblique Xrays. An intraoperative scan view of the spine was then performed using the iso-centric c-arm. Completion of the Procedure The incision was thoroughly irrigated with several liters of antibiotic solution. The incision was then closed in layers. 0 Vicryl with interrupted sutures were used to close the thoracolumbar fascia. The superficial fascia was closed with 0 Vicryl sutures. Three-0 Vicryl was used to close the subcutaneous tissue. The skin was closed with aby. At the end of the procedure the sponges, needles, and instrument counts were all correct. Estimated blood loss was 200 cc's. No complications occurred. The patient received prophylactic antibiotics. The patient was then extubated and transferred to the recovery room in stable condition. The entire procedure was performed using electrophysiological monitor of the electromyogram, evoked potential and sphincters. No intraoperative changes were detected. Bobo Gillette MD Sep 30, 2017 19:11
[2017-09-30] MEDS ORDERED: *morphine SULFATE 4 MG/ML PERIprocedure ONLY ONE (19:17)
[2017-09-30 19:40] LABS: HEMATOCRIT 33.3 % (39.0-51.0); HEMOGLOBIN 11.4 GM/DL (13.0-17.0); MEAN CELL VOLUME 90.8 FL (80.0-100.0); MEAN CORPUSCULAR HEMOGLOBIN 31.2 PG (27.0-34.0); MEAN CORPUSCULAR HGB CONC 34.3 % (32.0-36.0); MEAN PLATELET VOLUME 7.8 FL (7.0-11.0); PLATELET COUNT 288 TH/MM3 (150-450); RED BLOOD COUNT 3.66 MIL/MM3 (4.50-5.90); WHITE BLOOD COUNT 6.7 TH/MM3 (4.0-11.0)
--- NOTE | 2017-09-30 20:14 | PD.CONS ---
HPI Service Critical Care Medicine Consult Requested By Primary Care Physician Unknown History of Present Illness 61-year-old male with a history of type 2 diabetes mellitus with peripheral neuropathy, hypertension, and hepatitis C (treatment completed 2 years ago) was admitted in transfer from [facility] in [place] for neurosurgical evaluation and treatment of widespread metastatic spinal cancer with hemiparesis. His major complaint was severe myelopathy and incomplete paraplegia, with clinical evidence of myelopathy due to cord compression. He had multiple spinal metastases and severe stenosis at T4-5 with compression of the spinal cord. He was getting rapidly worse and was emergently taken to operating room by Dr. Gillette for surgical decompression. Review of Systems ROS Unable to obtain, Patient lethargic post general anesthesia Past Family Social History Allergies: Coded Allergies: No Known Allergies (Unverified , 09/29/17) Past Medical History Type 2 diabetes mellitus x 8 years Peripheral neuropathy secondary to diabetes Hypertension History of hepatitis C treated 2 years ago Past Surgical History Right knee arthroscopy 25 years ago Reported Medications Reported Meds & Active Scripts Active Reported Oxycodone-Acetaminophen 10-325 mg Tab 1 Tab PO Q6HR Losartan (Losartan Potassium) 50 Mg Tab 50 Mg PO DAILY Levemir Flextouch Pen Inj (Insulin Detemir) 300 unit/3 ML Pen 30 Units SQ HS Active Ordered Medications Current Medications Medications (Trade) Dose Ordered Sig/Lynn Route PRN Reason Start Time Stop Time Status Last Admin Dose Admin Sodium Chloride (NS Flush) 2 ml UNSCH PRN IV FLUSH FLUSH AFTER USING IV ACCESS 09/29/17 22:15 Sodium Chloride (NS Flush) 2 ml BID IV FLUSH 09/30/17 09:00 09/30/17 21:21 Acetaminophen (Tylenol) 650 mg Q4H PRN PO TEMP > 100.4 09/29/17 22:15 Ondansetron HCl (Zofran Inj) 4 mg Q6H PRN IVP NAUSEA OR VOMITING 09/29/17 22:15 Naloxone HCl (Narcan Inj) 0.4 mg UNSCH PRN IV PUSH SEE LABEL COMMENTS 09/29/17 22:15 Magnesium Hydroxide (Milk Of Magnesia Liq) 30 ml Q12H PRN PO Mild constipation 09/29/17 22:15 Sennosides (Senokot) 17.2 mg Q12H PRN PO Moderate constipation 09/29/17 22:15 Bisacodyl (Dulcolax Supp) 10 mg DAILY PRN RECTAL SEVERE CONSITIPATION 09/29/17 22:15 Morphine Sulfate (Morphine Inj) 4 mg Q3H PRN IV PUSH breakthrough pain 09/29/17 22:30 09/30/17 06:14 Dexamethasone Sodium Phosphate (Decadron Inj) 4 mg Q6HR IV PUSH 09/30/17 00:00 09/30/17 05:34 Losartan Potassium (Cozaar) 50 mg DAILY PO 09/30/17 09:00 09/30/17 08:52 Insulin Detemir (Levemir Inj) 30 units HS SQ 09/30/17 21:00 09/30/17 20:22 Oxycodone/ Acetaminophen (Percocet 10-325 Mg) 1 tab Q4HR PRN PO pain > 4 09/30/17 03:45 Insulin Human Regular 100 units/ Sodium Chloride 100 ml @ 1 mls/hr TITRATE PRN IV Blood Glucose Control 09/30/17 14:45 09/30/17 20:00 Dextrose (D50w (Vial) Inj) 50 ml UNSCH PRN IV PUSH HYPOGLYCEMIA- SEE COMMENTS 09/30/17 14:45 Potassium Chloride/Sodium Chloride 1,000 ml @ 100 mls/hr Q10H IV 09/30/17 18:56 09/30/17 18:56 Cefazolin Sodium/ Dextrose 50 ml @ 100 mls/hr Q8H IV 10/01/17 01:00 10/01/17 17:29 Docusate Sodium (Colace) 100 mg BID PO 09/30/17 21:00 Pantoprazole Sodium (Protonix) 40 mg DAILY PO 10/01/17 09:00 Acetaminophen/ Hydrocodone Bitart ([place] 10-325 Mg) 1 tab Q4H PRN PO PAIN SCALE 1 TO 5 09/30/17 19:00 Acetaminophen/ Hydrocodone Bitart ([place] 10-325 Mg) 2 tab Q4H PRN PO PAIN SCALE 6 TO 10 09/30/17 19:00 09/30/17 20:21 Morphine Sulfate (Morphine Inj) 2 mg Q2H PRN IV PUSH PAIN SCALE 1 TO 6 09/30/17 19:00 Morphine Sulfate (Morphine Inj) 4 mg Q2H PRN IV PUSH PAIN SCALE 7 TO 10 09/30/17 19:00 09/30/17 22:08 Acetaminophen (Tylenol) 650 mg Q4H PRN PO TEMPERATURE > 101.5 F 09/30/17 19:00 Miscellaneous Information ALL NURSING DEPARTME... UNSCH PRN .XX SEE LABEL COMMENTS 09/30/17 18:33 10/01/17 18:32 Family History Mother with diabetes mellitus Father with hypertension and kidney failure Sister with diabetes mellitus Social History He smokes every now and again - one cigarette every few months Alcohol: was drinking 4 tallboy beers daily until 2 weeks ago Illicit Drugs: smoked cocaine as recently as two months ago, denies IV drug use Physical Exam Vital Signs Vital Signs Date Time Temp Pulse Resp B/P (MAP) Pulse Ox O2 Delivery O2 Flow Rate FiO2 09/30/17 19:30 90 19 110/59 (76) 100 Nasal Cannula 4 09/30/17 19:15 101 18 119/79 (92) 100 Simple Mask 6 09/30/17 19:00 99 14 117/75 (89) 99 Mechanical Ventilator 50 09/30/17 18:45 94 14 109/66 (80) 100 Mechanical Ventilator 50 09/30/17 18:33 98.4 94 16 155/93 (113) 100 Mechanical Ventilator 50 09/30/17 12:00 97.8 12 99 09/30/17 10:00 75 09/30/17 08:00 74 09/30/17 08:00 97.8 79 12 152/99 (116) 99 09/30/17 07:00 Room Air 09/30/17 06:19 15 09/30/17 06:00 87 09/30/17 04:00 97.9 79 21 150/81 (104) 98 09/30/17 04:00 87 09/30/17 02:00 84 09/30/17 00:00 97.7 83 25 144/90 (108) 100 09/30/17 00:00 83 Physical Exam GENERAL: Well-nourished, well-developed patient. SKIN: Warm and dry. HEAD: Normocephalic. EYES: No scleral icterus. No injection or drainage. NECK: Supple, trachea midline. No JVD or lymphadenopathy. CARDIOVASCULAR: Regular rate and rhythm without murmurs, gallops, or rubs. RESPIRATORY: Breath sounds equal bilaterally. No accessory muscle use. GASTROINTESTINAL: Abdomen soft, non-tender, nondistended. MUSCULOSKELETAL: No cyanosis, or edema. BACK: Nontender without obvious deformity. NEURO EXAM: The patient is alert, awake and oriented to time, place and person. Speech is fluent. Higher cognitive functions are normal. Cranial nerve examination demonstrates the pupils to be equal, round, and reactive to light. Extra-ocular movements are intact. Facial motor and sensory function are normal and symmetrical. Gross hearing is intact, bilaterally. The uvula is midline and elevates symmetrically with the soft palate. Sternocleidomastoid and trapezius muscles have normal and symmetrical strength. Other cranial nerves are intact.Deep tendon reflexes are 2+ and symmetrical in the biceps, triceps, and brachioradialis, bilaterally, in the upper extremities. In the lower extremities, the patellar and Achilles are 3+, bilaterally. There is a bilateral Babinsky. There is no clonus Laboratory Laboratory Tests Test 09/29/17 21:55 09/30/17 04:48 09/30/17 08:46 09/30/17 19:10 Nasal Screen MRSA (PCR) MRSA NOT DETECTED White Blood Count 2.6 6.7 Red Blood Count 4.34 3.66 Hemoglobin 13.6 11.4 Hematocrit 39.6 33.3 Mean Corpuscular Volume 91.0 90.8 Mean Corpuscular Hemoglobin 31.4 31.2 Mean Corpuscular Hemoglobin Concent 34.5 34.3 Red Cell Distribution Width 14.9 15.0 Platelet Count 238 288 Mean Platelet Volume 8.5 7.8 Neutrophils (%) (Auto) 53.7 Lymphocytes (%) (Auto) 42.1 Monocytes (%) (Auto) 3.6 Eosinophils (%) (Auto) 0.1 Basophils (%) (Auto) 0.5 Neutrophils # (Auto) 1.4 Lymphocytes # (Auto) 1.1 Monocytes # (Auto) 0.1 Eosinophils # (Auto) 0.0 Basophils # (Auto) 0.0 CBC Comment AUTO DIFF Differential Comment AUTO DIFF CONFIRMED Blood Urea Nitrogen 13 Creatinine 0.87 Random Glucose 390 Total Protein 9.4 Albumin 3.5 Calcium Level 9.6 Alkaline Phosphatase 134 Aspartate Amino Transf (AST/SGOT) 83 Alanine Aminotransferase (ALT/SGPT) 70 Total Bilirubin 0.5 Sodium Level 132 Potassium Level 4.3 Chloride Level 99 Carbon Dioxide Level 23.5 Anion Gap 10 Estimat Glomerular Filtration Rate 108 Prostate Specific Antigen 0.11 Result Diagram: 09/30/17 1910 09/30/17 0448 Septic Shock Reassessment Septic shock perfusion: reassessment completed Assessment and Plan Assessment and Plan Spinal cord compression at the level of T4 - Status post emergent decompression by neurosurgery - Continue dexamethasone - Radiation oncology for consideration of further treatment - Further management per Dr. Gillette Diabetes mellitus - Insulin drip - Resume Levemir nothing by mouth - Insulin sliding scale Metastatic disease - Unknown primarily - CT abdomen pelvis - Workup per oncology Dr. Duron Anemia - Postoperative - Monitor H&H - Transfuse for hemoglobin less than 7 DVT GI prophylaxis - Teds SCDs - Lovenox - Pantoprazole Critical Care: The total critical care time was 35 minutes. Time to perform other separately billable procedures was not included in the critical care time. Diaz Vegas MD Sep 30, 2017 20:14
[2017-09-30] MEDS: ACETAMINOPHEN/HYDROcodone 325 MG/10 MG TAB PO PRN (20:21)
[2017-09-30] MEDS: INSULIN DETEMIR 100 UNITS/ML VIAL SQ SCH (20:22)
[2017-09-30 20:28] LABS: BICARBONATE 23.9 MEQ/L (21.0-32.0); CALCIUM 8.8 MG/DL (8.5-10.1); CREATININE 0.89 MG/DL (0.60-1.30)
[2017-09-30] MEDS: DOCUSATE SODIUM 100 MG CAP PO SCH (21:00)
[2017-09-30] MEDS: MORPHINE SULFATE 4 MG/ML INJ IV PUSH PRN (22:08)
[2017-10-01] VITALS (12 sets, daily range): BP systolic 106–146; BP diastolic 62–89; PULSE 57–80; RESP 9–26; TEMP 97.5–98.3; O2SAT 95–100
[2017-10-01] MEDS: ceFAZolin 2 GM PREMIX 50 ML IV SCH ×3 (01:05→17:18)
[2017-10-01] MEDS: DEXAMETHASONE SOD PHOS 4 MG/ML VIAL IV PUSH SCH ×4 (01:05→17:18)
[2017-10-01] MEDS: MORPHINE SULFATE 4 MG/ML INJ IV PUSH PRN ×2 (02:12→05:44)
[2017-10-01] MEDS: ACETAMINOPHEN/HYDROcodone 325 MG/10 MG TAB PO PRN ×3 (04:00→18:49)
[2017-10-01 04:52] LABS: HEMATOCRIT 32.4 % (39.0-51.0); HEMOGLOBIN 11.4 GM/DL (13.0-17.0); MEAN CELL VOLUME 90.5 FL (80.0-100.0); MEAN CORPUSCULAR HEMOGLOBIN 31.7 PG (27.0-34.0); MEAN PLATELET VOLUME 8.1 FL (7.0-11.0); PLATELET COUNT 254 TH/MM3 (150-450); RED BLOOD COUNT 3.58 MIL/MM3 (4.50-5.90); WHITE BLOOD COUNT 8.8 TH/MM3 (4.0-11.0)
[2017-10-01 05:01] LABS: BICARBONATE 27.2 MEQ/L (21.0-32.0); CALCIUM 8.8 MG/DL (8.5-10.1); CREATININE 0.64 MG/DL (0.60-1.30)
[2017-10-01] MEDS: NS + KCL 20 MEQ INJ 1,000 ML IV SCH ×2 (05:35→17:21)
[2017-10-01] MEDS ORDERED: DC Insulin drip 2 hrs post basal insulin dose ONE (06:00)
[2017-10-01] MEDS ORDERED: DEXTROSE 50% IN WATER 50 ML VIAL(D50) IV PUSH PRN (06:00)
[2017-10-01] MEDS ORDERED: DC previous DKA orders (HMC 1917) ONE (06:00)
[2017-10-01] MEDS ORDERED: GLUCAGON 1 MG/ML VIAL OTHER PRN (06:00)
[2017-10-01] MEDS ORDERED: INSULIN REGULAR 100 UNITS/100 ML NS ALGORITHM 2 IV PRN ×2 (06:15)
--- NOTE | 2017-10-01 07:44 | HHI.CCPN ---
Subjective Remarks/Hospital Course Hospital Course: 61-year-old male with a history of type 2 diabetes mellitus with peripheral neuropathy, hypertension, and hepatitis C (treatment completed 2 years ago) was admitted in transfer from [facility] in [place] for neurosurgical evaluation and treatment of widespread metastatic spinal cancer with hemiparesis. His major complaint was severe myelopathy and incomplete paraplegia, with clinical evidence of myelopathy due to cord compression. He had multiple spinal metastases and severe stenosis at T4-5 with compression of the spinal cord. He was getting rapidly worse and was emergently taken to operating room by Dr. Gillette for surgical decompression. Subjective: 10/01: doing well. denies complaints. neuro intact this AM. NAYELI with minimal serosanguineous output. Objective Vital Signs Date Time Temp Pulse Resp B/P (MAP) Pulse Ox O2 Delivery O2 Flow Rate FiO2 10/01/17 06:18 15 10/01/17 06:00 61 10/01/17 04:00 97.6 139/89 (106) 99 09/30/17 21:00 Nasal Cannula 2.00 09/30/17 19:00 50 Intake and Output 10/01/17 10/01/17 10/02/17 08:00 16:00 00:00 Intake Total 1530 ml Output Total 1140 ml Balance 390 ml Result Diagram: 10/01/1741910/01/17419 Objective Remarks GENERAL: middle-aged male, lying in bed. SKIN: Warm and dry. HEAD: Normocephalic. EYES: No scleral icterus. No injection or drainage. NECK: trachea midline. No JVD CARDIOVASCULAR: Regular rate and rhythm. sinus by tele. RESPIRATORY: equal chest rise. nc o2. unlabored. GASTROINTESTINAL: Abdomen soft, non-tender, nondistended. MUSCULOSKELETAL: No cyanosis, or edema. NEURO EXAM: RASS 0. CAM -. follows commands x 4. NIC 5/5 b/l upper and lower extremities. A/P Assessment and Plan Assessment: 61yM with wide-spread metastatic disease of unknown primary with cord compression now POD 1 s/p emergent decompression. clinically doing well. Spinal cord compression at the level of T4 - Status post emergent decompression by neurosurgery - Continue dexamethasone - Radiation oncology for consideration of further treatment - Further management per Dr. Gillette Diabetes mellitus - Insulin drip - Resume Levemir nothing by mouth - Insulin sliding scale Metastatic disease - Unknown primarily - CT abdomen pelvis without suggestion of primary. - Workup per oncology Dr. Duron Anemia- secondary to acute blood loss - Postoperative - Monitor H&H - Transfuse for hemoglobin less than 7 DVT GI prophylaxis - Teds SCDs - Lovenox - Pantoprazole Dispo: will discuss with neurosurgery: neuro intact. can transfer out of ICU from my standpoint. Myron Smith MD Oct 01, 2017 07:44
[2017-10-01] MEDS: INSULIN ASPART SUPPLEMENTAL SCALE SQ SCH ×4 (08:00→21:11)
[2017-10-01] MEDS: PANTOPRAZOLE SOD 40 MG DELAYED RELEASE TAB PO SCH (08:54)
[2017-10-01] MEDS: LOSARTAN 50 MG TAB PO SCH (08:54)
[2017-10-01] MEDS: SODIUM CHLORIDE 0.9% FLUSH 10 ML FLUSH IV FLUSH SCH ×2 (08:54→21:10)
[2017-10-01] MEDS: DOCUSATE SODIUM 100 MG CAP PO SCH ×2 (08:54→21:09)
--- NOTE | 2017-10-01 10:47 | HHI.PR ---
Subjective Remarks In bed, says he has some slight abdominal pain at the site of procedure. No fever or chills. No n/v/d/c. No headache. No new motor deficit or change in vision. Denies chest pain, sob, lightheadedness. Objective Vitals Vital Signs Date Time Temp Pulse Resp B/P (MAP) Pulse Ox O2 Delivery O2 Flow Rate FiO2 10/01/17 06:18 15 10/01/17 06:00 61 10/01/17 05:25 22 10/01/17 04:00 97.6 62 15 139/89 (106) 99 10/01/17 04:00 69 10/01/17 02:00 69 10/01/17 00:00 80 10/01/17 00:00 97.7 78 9 115/62 (79) 96 Automatic Cuff 09/30/17 22:00 77 09/30/17 21:00 85 09/30/17 21:00 100 Nasal Cannula 2.00 09/30/17 19:30 90 19 110/59 (76) 100 Nasal Cannula 4 09/30/17 19:15 101 18 119/79 (92) 100 Simple Mask 6 09/30/17 19:00 99 14 117/75 (89) 99 Mechanical Ventilator 50 09/30/17 18:45 94 14 109/66 (80) 100 Mechanical Ventilator 50 09/30/17 18:33 98.4 94 16 155/93 (113) 100 Mechanical Ventilator 50 09/30/17 18:30 99 30 09/30/17 12:00 97.8 12 99 I/O 09/30/17 09/30/17 09/30/17 10/01/17 10/01/17 10/01/17 07:00 15:00 23:00 07:00 15:00 23:00 Intake Total 1000 ml 3700 ml 1530 ml Output Total 1600 ml 2810 ml 1140 ml Balance -1600 ml 1000 ml 890 ml 390 ml Intake Oral 0 ml 480 ml IV Total 1000 ml 1050 ml Other 3700 ml Output Urine Total 1600 ml 1610 ml 1000 ml Drainage Total 140 ml Estimated Blood Loss 200 ml Other 1000 ml # Voids 2 # Bowel Movements 0 0 Result Diagram: 10/01/17 0420 10/01/17 0420 Imaging Last Impressions Thoracic Spine X-Ray 09/30/17 0000 Signed Impressions: Service Date/Time: Saturday, September 30, 2017 15:48 - CONCLUSION: Good alignment on this postoperative study. Bruton Duncan MD Thoracic Spine CT 09/30/17 0000 Signed Impressions: Service Date/Time: Saturday, September 30, 2017 09:33 - CONCLUSION: Minimal compression deformities at T6, T7 and T8. Known widespread marrow infiltration throughout the thoracic spine is much better visualized on recent MRI. Paravertebral soft tissue mass at T4 results in some degree of spinal stenosis and extends along the lateral aspects of the vertebral body bilaterally. Scoliosis and degenerative changes of the thoracic spine. Michael Cuevas MD Chest X-Ray 09/30/17 0000 Signed Impressions: Service Date/Time: Saturday, September 30, 2017 04:58 - CONCLUSION: 1. Linear atelectasis or scarring at the lung bases. No effusion or pneumothorax. Alberto Moses MD Chest CT 09/30/17 0000 Signed Impressions: Service Date/Time: Saturday, September 30, 2017 09:33 - CONCLUSION: Widespread bony metastatic disease described in detail on MRI of the thoracic and lumbar spine. Sagittal primary is not evident in the chest Minimal bibasilar parenchymal changes Minimal nonspecific axillary adenopathy.. Ant Rod MD FACR Cervical Spine CT 09/30/17 0000 Signed Impressions: Service Date/Time: Saturday, September 30, 2017 09:27 - CONCLUSION: 1. Some mottling of the lower cervical spine. MRI of the cervical spine with and without contrast would be much more sensitive to rule out metastatic disease if clinically indicated. 2. No acute fracture or prevertebral soft tissue swelling. 3. Cervical spondylosis at C5-6, C6-7 and C7-T1. 4. Mild left neural foraminal narrowing at C5-6, C6-7 and C7-T1. Michael Cuevas MD Abdomen/Pelvis CT 09/30/17 0000 Signed Impressions: Service Date/Time: Saturday, September 30, 2017 09:33 - CONCLUSION: Widespread bony metastatic disease. Site of primary is not identified in the abdomen or pelvis. Ant Rod MD FACR Thoracic Spine MRI 09/29/17 0000 Signed Impressions: Service Date/Time: September 23:08 - CONCLUSION: 1. There is widespread metastatic disease to the thoracic spine. At the level of T4 tumor extends into the spinal canal with at least moderate compression on the thoracic cord from the lateral aspect bilaterally. There is also extensive soft tissue tumor in the neural foramina bilaterally and in the paravertebral soft tissues at this level. 2. Questionable mild pathologic fracture of T8 and possibly T7. Alberto Moses MD Lumbar Spine MRI 09/29/17 0000 Signed Impressions: Service Date/Time: September 23:08 - CONCLUSION: 1. Widespread bony metastatic disease to the lumbar spine. There is soft tissue tumor invasion of the spinal canal at L2 with effacement of the lateral recesses bilaterally and encasement of the exiting right L2 nerve root. There is also extension of enhancing tumor into the paravertebral soft tissues. No acute fracture or spondylolisthesis. Alberto Moses MD Objective Remarks GENERAL: Well-nourished, well-developed patient; pleasant and cooperative. Tearful when discussing diagnosis. CARDIOVASCULAR: Regular rate and rhythm without murmurs, gallops, or rubs. RESPIRATORY: Breath sounds diminished at bases, equal bilaterally. No accessory muscle use. GASTROINTESTINAL: Abdomen soft, non-tender, nondistended. EXTREMITIES: No cyanosis, or edema. NEUROLOGICAL: Awake, alert, and oriented x 3. Hip flexion is 2/5 bilaterally, seems very slightly weaker on left than right; ankle flexion 4+/5. Hand adult family home program manager bilaterally 5-/5. Shoulder shrug equal. 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 Martínez is a 61 y/o male with a history of type 2 diabetes mellitus with peripheral neuropathy, hypertension, and hepatitis C (treatment completed 2 years ago) who presented to [facility] in transfer from [facility] in [place] for neurosurgical evaluation and treatment of widespread metastatic spinal cancer with hemiparesis. Multiple spinal cord metastases with cord compression with unknown primary site S/p T4 bilateral laminectomy facetectomy, resection of epidural tumor, T3-T5 arthrodesis with transpedicular screws and rods, T3-T5 posterolateral fusion using autologous bone graft and demineralized bone matrix by Dr Gillette on 09/30/17 - consult neurosurgery - consult oncology - Decadron 4 mg IV q6h - Oxycodone 10/325 q4h p.o. PRN pain > 4 - Morphine 4 mg IV q3h PRN breakthrough pain - continuous cardiac telemetry to monitor for arrhythmia - neurochecks q4h - VS q4h - NPO Hypertension - resume home losartan - monitor trends in blood pressure and adjust treatment as indicated Type 2 DM - continue home Levemir - accuchecks AC and HS with low dose Novolog - monitor trends in blood glucose readings and adjust treatments as indicated - PRN hypoglycemia treatment protocol DVT prophylaxis - SCDs Discussed Condition With patient, and ICU nurse Tashia Yu MD Oct 01, 2017 10:47
--- NOTE | 2017-10-01 11:55 | HHI.NSPN ---
(Yevgeniy Magallon) History Chief Complaint: Pain to the upper back when he sits up. (Yevgeniy Magallon) Interval History Mr. Martínez is a 61-year-old male who wit history of hypertension and diabetes mellitus who developed increasing back pain. His pain started in the mid back and progressed to involve the anterolateral wall of his chest. He had multiple ER visits at [facility]. 09/30: One week ago the pain worsened and he developed weakness in his legs. He reports not being able to stand or walk since Tuesday. He presented to the [facility] last night and underwent imaging studies of the lumbar vertebral bodies and was noted to have extensive metastases. He was found to have spinal cord compression and he was transferred to [facility] for neurosurgical evaluation. His legs are getting progressively weaker. He developed numbness in his chest and lower body. He underwent thoracic and lumbar spine MRI with and without contrast which revealed widespread metastatic disease to the thoracic spine with moderate to severe compression of the thoracic spinal cord at T4. Questionable pathologic fracture of T8 and T7. A lumbar vertebral body MRI with and without contrast revealed additional widespread bony metastatic disease with invasion of the spinal canal at the level of L2. There was extensive tumor extension was noted in the paravertebral soft tissues. Neurosurgical consultation was requested 10/01: When seen this afternoon the patient is awake and alert in bed watching TV. He says he has some pain to the surgical incision otherwise he is doing good. He then said that when he sits up he will feel pain to the upper back. He denies any numbness or tingling to the extremities or the thorax. He denies any headache, dizziness, chest pain, palpitations, irregular heartbeat, shortness of breath, abdominal pain or nausea. He denies any extremity pain. Upon examination the patient's sensation is intact to light touch throughout and he has improved muscle strength to both lower extremities. (Yevgeniy Magallon) Exam Results 09/29/17 09/29/17 09/30/17 09/30/17 10/01/17 10/01/17 06:00 18:00 06:00 18:00 06:00 18:00 Intake Total 1000 ml 5230 ml 100 ml Output Total 2600 ml 1610 ml 2340 ml Balance -2600 ml -610 ml 2890 ml 100 ml Intake Oral 0 ml 480 ml IV Total 1000 ml 1050 ml 100 ml Other 3700 ml Output Urine Total 2600 ml 1610 ml 1000 ml Drainage Total 140 ml Estimated Blood Loss 200 ml Other 1000 ml # Voids 4 # Bowel Movements 0 0 Vital Signs Date Time Temp Pulse Resp B/P (MAP) Pulse Ox O2 Delivery O2 Flow Rate FiO2 10/01/17 10:00 73 10/01/17 10:00 17 10/01/17 08:00 97.5 77 16 146/89 (108) 100 10/01/17 08:00 76 10/01/17 07:00 100 Room Air 10/01/17 06:18 15 10/01/17 06:00 61 10/01/17 04:00 97.6 62 15 139/89 (106) 99 10/01/17 04:00 69 10/01/17 02:00 69 10/01/17 00:00 80 10/01/17 00:00 97.7 78 9 115/62 (79) 96 Automatic Cuff 09/30/17 22:00 77 09/30/17 21:00 85 09/30/17 21:00 100 Nasal Cannula 2.00 09/30/17 19:30 90 19 110/59 (76) 100 Nasal Cannula 4 09/30/17 19:15 101 18 119/79 (92) 100 Simple Mask 6 09/30/17 19:00 99 14 117/75 (89) 99 Mechanical Ventilator 50 09/30/17 18:45 94 14 109/66 (80) 100 Mechanical Ventilator 50 09/30/17 18:33 98.4 94 16 155/93 (113) 100 Mechanical Ventilator 50 09/30/17 18:30 99 30 09/30/17 12:00 97.8 12 99 09/30/17 10:00 75 09/30/17 08:00 74 09/30/17 08:00 97.8 79 12 152/99 (116) 99 09/30/17 07:00 Room Air 09/30/17 06:19 15 09/30/17 06:00 87 09/30/17 04:00 97.9 79 21 150/81 (104) 98 09/30/17 04:00 87 09/30/17 02:00 84 09/30/17 00:00 97.7 83 25 144/90 (108) 100 09/30/17 00:00 83 (Yevgeniy Magallon) Physical Examination GENERAL: Awake & alert in bed watching TV. Readily interacts. Affect normal. No apparent distress. HEENT: Normocephalic, atraumatic. PERRLA 2 mm brisk, EOMI. MMM & pink, tongue midline to protrusion. RESPIRATORY: CTAB w/o W/R/R, equal excursion, nonlaboured, on RA. CARDIOVASCULAR: S1S2 w/RRR w/o M/G/R. Monitor is sinus rhythm w/o any ectopy noted. GASTROINTESTINAL: Abdomen soft, nontender, positive bowel sounds. GENITOURINARY: Evangelista catheter to BSD w/clear yellow urine. MUSCULOSKELETAL: YING spontaneously. Thoracic spine mildly TTP at the surgical incision, dressing is intact w/shadowing noted to it, the NAYELI drain is to bulb suction w/serosanguinous drainage. NEUROLOGICAL: AAOx3. Speech clear & appropriate. Follows commands w/o difficulty. Spontaneous eye opening. CN II to XII appear grossly intact. Sensation is intact to light touch to all extremities. Muscle strength: RUE: 5/5 to all major flexion & extension muscle groups to include the wrist flexors & extensors and the hand intrinsics & extrinsics. LUE: 5/5 to all major flexion & extension muscle groups to include the wrist flexors & extensors and the hand intrinsics & extrinsics. RLE 4/5 to iliopsoas, 4+ to 5/5 to quadriceps, 3+ to 4/5 to hamstrings, 5/5 to tibialis anterior, 5/5 to gastrocnemius and 3+/5 to extensor hallucis longus. LLE 4/5 to iliopsoas, 4+ to 5/5 to quadriceps, 3+/5 to hamstrings, 5/5 to tibialis anterior, 5/5 to gastrocnemius and 4/5 to extensor hallucis longus. (Yevgeniy Magallon) Lab, Micro, Other Results Recent Impressions Thoracic Spine X-Ray 09/30/17 0000 Signed Impressions: Service Date/Time: Saturday, September 30, 2017 15:48 - CONCLUSION: Good alignment on this postoperative study. Burton Duncan MD Thoracic Spine CT 09/30/17 0000 Signed Impressions: Service Date/Time: Saturday, September 30, 2017 09:33 - CONCLUSION: Minimal compression deformities at T6, T7 and T8. Known widespread marrow infiltration throughout the thoracic spine is much better visualized on recent MRI. Paravertebral soft tissue mass at T4 results in some degree of spinal stenosis and extends along the lateral aspects of the vertebral body bilaterally. Scoliosis and degenerative changes of the thoracic spine. Michael Cuevas MD Chest X-Ray 09/30/17 0000 Signed Impressions: Service Date/Time: Saturday, September 30, 2017 04:58 - CONCLUSION: 1. Linear atelectasis or scarring at the lung bases. No effusion or pneumothorax. Alberto Moses MD Chest CT 09/30/17 0000 Signed Impressions: Service Date/Time: Saturday, September 30, 2017 09:33 - CONCLUSION: Widespread bony metastatic disease described in detail on MRI of the thoracic and lumbar spine. Sagittal primary is not evident in the chest Minimal bibasilar parenchymal changes Minimal nonspecific axillary adenopathy.. Ant Rod MD FACR Cervical Spine CT 09/30/17 0000 Signed Impressions: Service Date/Time: Saturday, September 30, 2017 09:27 - CONCLUSION: 1. Some mottling of the lower cervical spine. MRI of the cervical spine with and without contrast would be much more sensitive to rule out metastatic disease if clinically indicated. 2. No acute fracture or prevertebral soft tissue swelling. 3. Cervical spondylosis at C5-6, C6-7 and C7-T1. 4. Mild left neural foraminal narrowing at C5-6, C6-7 and C7-T1. Michael Cuevas MD Abdomen/Pelvis CT 09/30/17 0000 Signed Impressions: Service Date/Time: Saturday, September 30, 2017 09:33 - CONCLUSION: Widespread bony metastatic disease. Site of primary is not identified in the abdomen or pelvis. Ant Rod MD FACR Thoracic Spine MRI 09/29/17 0000 Signed Impressions: Service Date/Time: September 23:08 - CONCLUSION: 1. There is widespread metastatic disease to the thoracic spine. At the level of T4 tumor extends into the spinal canal with at least moderate compression on the thoracic cord from the lateral aspect bilaterally. There is also extensive soft tissue tumor in the neural foramina bilaterally and in the paravertebral soft tissues at this level. 2. Questionable mild pathologic fracture of T8 and possibly T7. Alberto Moses MD Lumbar Spine MRI 09/29/17 0000 Signed Impressions: Service Date/Time: September 23:08 - CONCLUSION: 1. Widespread bony metastatic disease to the lumbar spine. There is soft tissue tumor invasion of the spinal canal at L2 with effacement of the lateral recesses bilaterally and encasement of the exiting right L2 nerve root. There is also extension of enhancing tumor into the paravertebral soft tissues. No acute fracture or spondylolisthesis. Alberto Moses MD Laboratory Tests Test 09/29/17 21:55 09/30/17 04:48 09/30/17 08:46 09/30/17 19:10 Nasal Screen MRSA (PCR) MRSA NOT DETECTED White Blood Count 2.6 TH/MM3 6.7 TH/MM3 Red Blood Count 4.34 MIL/MM3 3.66 MIL/MM3 Hemoglobin 13.6 GM/DL 11.4 GM/DL Hematocrit 39.6 % 33.3 % Mean Corpuscular Volume 91.0 FL 90.8 FL Mean Corpuscular Hemoglobin 31.4 PG 31.2 PG Mean Corpuscular Hemoglobin Concent 34.5 % 34.3 % Red Cell Distribution Width 14.9 % 15.0 % Platelet Count 238 TH/MM3 288 TH/MM3 Mean Platelet Volume 8.5 FL 7.8 FL Neutrophils (%) (Auto) 53.7 % Lymphocytes (%) (Auto) 42.1 % Monocytes (%) (Auto) 3.6 % Eosinophils (%) (Auto) 0.1 % Basophils (%) (Auto) 0.5 % Neutrophils # (Auto) 1.4 TH/MM3 Lymphocytes # (Auto) 1.1 TH/MM3 Monocytes # (Auto) 0.1 TH/MM3 Eosinophils # (Auto) 0.0 TH/MM3 Basophils # (Auto) 0.0 TH/MM3 CBC Comment AUTO DIFF Differential Comment AUTO DIFF CONFIRMED Blood Urea Nitrogen 13 MG/DL 13 MG/DL Creatinine 0.87 MG/DL 0.89 MG/DL Random Glucose 390 MG/DL 233 MG/DL Total Protein 9.4 GM/DL Albumin 3.5 GM/DL Calcium Level 9.6 MG/DL 8.8 MG/DL Alkaline Phosphatase 134 U/L Aspartate Amino Transf (AST/SGOT) 83 U/L Alanine Aminotransferase (ALT/SGPT) 70 U/L Total Bilirubin 0.5 MG/DL Sodium Level 132 MEQ/L 138 MEQ/L Potassium Level 4.3 MEQ/L 3.7 MEQ/L Chloride Level 99 MEQ/L 104 MEQ/L Carbon Dioxide Level 23.5 MEQ/L 23.9 MEQ/L Anion Gap 10 MEQ/L 10 MEQ/L Estimat Glomerular Filtration Rate 108 ML/MIN 106 ML/MIN Prostate Specific Antigen 0.11 NG/ML Test 10/01/17 04:20 White Blood Count 8.8 TH/MM3 Red Blood Count 3.58 MIL/MM3 Hemoglobin 11.4 GM/DL Hematocrit 32.4 % Mean Corpuscular Volume 90.5 FL Mean Corpuscular Hemoglobin 31.7 PG Mean Corpuscular Hemoglobin Concent 35.0 % Red Cell Distribution Width 15.0 % Platelet Count 254 TH/MM3 Mean Platelet Volume 8.1 FL Blood Urea Nitrogen 12 MG/DL Creatinine 0.64 MG/DL Random Glucose 149 MG/DL Calcium Level 8.8 MG/DL Sodium Level 139 MEQ/L Potassium Level 4.1 MEQ/L Chloride Level 107 MEQ/L Carbon Dioxide Level 27.2 MEQ/L Anion Gap 5 MEQ/L Estimat Glomerular Filtration Rate 155 ML/MIN (Yevgeniy Magallon) Medical Decision Making Impression and Plan Impression: 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 Reviewed labs for today. Haemoglobin stable. NAYELI drain w/140 mL output since surgery as of this morning at shift change. POD #1 () s/p: T4 bilateral laminectomy facetectomy, resection of epidural tumor, T3-T5 arthrodhesis with transpedicular screws and rods, T3-T5 posterolateral fusion using autologous bone fraft and demineralized bone matrix Plan: Neuro checks. Radiation Oncology consult. Hold pharmacologic DVT prophylaxis. Mechanical DVT prophylaxis. Stress ulcer prophylaxis. Clamshell brace when OOB. Mobilise patient w/assistance. Physical Therapy. Continue Evangelista today. Patient should be able to transfer to regular med/surg floor tomorrow. (Yevgeniy Magallon) Attending Statement The exam, history, and the medical decision-making described in the above note were completed with the assistance of the mid-level provider. I reviewed and agree with the findings presented. I attest that I had a [id number] encounter with the patient on the same day, and personally performed and documented my assessment and findings in the medical record. On my examination today he has mostly 3+-4/5 strength in the bilateral lower extremities, improved compared to preoperative. He is sitting up in a chair with the brace on. Tolerating diet well. Pain adequately controlled with present medications Doing well postoperative Anticipate transfer to regular floor on 10/02/17. Continuing drain for now (Anish Durand MD) Yevgeniy Magallon Oct 01, 2017 11:55 Anish Durand MD Oct 01, 2017 13:15
[2017-10-01] MEDS: MORPHINE SULFATE 2 MG/ML INJ IV PUSH PRN ×2 (12:48→21:09)
--- NOTE | 2017-10-01 15:50 | MB ---
cc: LATHA BLANCA MD, RONALD J. M.D. VINAS, FEDERICO C. M.D. DATE OF CONSULTATION: 10/01/2017. REASON FOR CONSULTATION: BRIEF HISTORY: This is a 61-year-old gentleman who was transferred from [facility] with progressive back pain and impending paraplegia. He was found to have evidence of a cord compression at the T4-5 level as well as nerve root impingement in the lumbar spine with what appeared to be extensive bony metastatic disease. He did not have a diagnosis of malignancy. He had progressive weakness of his lower limbs and Dr. Gillette proceeded to perform a T4 bilateral laminectomy, facetectomy, resection of epidural tumor, T3-T5 arthrodesis with transpedicular screws and rods, T3-5 posterolateral fusion using autologous graft and demineralization bone matrix on September 30, 2017. Reportedly, tissue sent for pathology indicated a possible lymphoma with final pathology pending. Postoperatively this gentleman appears to be resting comfortably in bed. He reports that his pain is less. He also feels that he has increased strength in his lower limbs. PHYSICAL EXAMINATION: Today on exam he has an excellent power with dorsiflexion and plantar flexion at the ankle level. He is able to lift both legs against gravity. He is wearing compression hose so further testing was difficult. He does have good sensation above the knee. REVIEW OF DATA: I have reviewed with this gentleman the findings on his diagnostic imaging and the potential diagnosis of lymphoma, although I have told him until final pathology is available his exact diagnosis would still be considered unclear. Nevertheless, I would expect that he will require systemic therapy. Additionally, I believe he should undergo postoperative radiation treatment at the T4-5 level where he has extensive residual disease as well as soft tissue disease surrounding the vertebral bodies. Additionally, he has tumor encroaching on the nerve roots at the L2 level, which I believe does require urgent treatment as well and this should be started at the same time. I have discussed this with him in detail. He does live in [place]. I anticipate his rehab will occur in [place] and his follow up treatment will occur in that location; however, should he remain in our community, I would anticipate starting his radiation treatment in ten to fourteen days. I have discussed this with him at length as well and I believe he understands. MD LEWIS Graf/CHEYENNE /2:11 PM /3:33 PM
[2017-10-01] MEDS: INSULIN DETEMIR 100 UNITS/ML VIAL SQ SCH (21:10)
[2017-10-02] VITALS (12 sets, daily range): BP systolic 119–161; BP diastolic 77–102; PULSE 52–68; RESP 9–25; TEMP 96.4–98.1; O2SAT 100
[2017-10-02] MEDS: DEXAMETHASONE SOD PHOS 4 MG/ML VIAL IV PUSH SCH ×5 (00:19→23:05)
[2017-10-02] MEDS: NS + KCL 20 MEQ INJ 1,000 ML IV SCH ×2 (00:20→12:05)
--- NOTE | 2017-10-02 00:24 | EKG ---
Date Performed: 09/30/2017 Time Performed: 11:51:38 PTAGE: 61 years EKG: Sinus rhythm . Anterior T wave changes are nonspecific Borderline ECG NO PREVIOUS TRACING DOCTOR: Temo Westfall Interpretating Date/Time 10/02/2017 00:23:25
[2017-10-02] MEDS: ACETAMINOPHEN/HYDROcodone 325 MG/10 MG TAB PO PRN ×4 (04:37→23:05)
[2017-10-02] MEDS: INSULIN ASPART SUPPLEMENTAL SCALE SQ SCH ×4 (08:00→20:25)
[2017-10-02] MEDS: PANTOPRAZOLE SOD 40 MG DELAYED RELEASE TAB PO SCH (08:39)
[2017-10-02] MEDS: LOSARTAN 50 MG TAB PO SCH (08:39)
[2017-10-02] MEDS: DOCUSATE SODIUM 100 MG CAP PO SCH ×2 (08:39→20:24)
[2017-10-02] MEDS: SODIUM CHLORIDE 0.9% FLUSH 10 ML FLUSH IV FLUSH SCH ×2 (08:40→20:24)
--- NOTE | 2017-10-02 12:00 | HHI.NSPN ---
(Manish Magallonmary LINARES) History Chief Complaint: Doing good today. (Yevgeniy Magallon Karyn LINARES) Interval History Mr. Martínez is a 61-year-old male who wit history of hypertension and diabetes mellitus who developed increasing back pain. His pain started in the mid back and progressed to involve the anterolateral wall of his chest. He had multiple ER visits at [facility]. 09/30: One week ago the pain worsened and he developed weakness in his legs. He reports not being able to stand or walk since Tuesday. He presented to the [facility] last night and underwent imaging studies of the lumbar vertebral bodies and was noted to have extensive metastases. He was found to have spinal cord compression and he was transferred to [facility] for neurosurgical evaluation. His legs are getting progressively weaker. He developed numbness in his chest and lower body. He underwent thoracic and lumbar spine MRI with and without contrast which revealed widespread metastatic disease to the thoracic spine with moderate to severe compression of the thoracic spinal cord at T4. Questionable pathologic fracture of T8 and T7. A lumbar vertebral body MRI with and without contrast revealed additional widespread bony metastatic disease with invasion of the spinal canal at the level of L2. There was extensive tumor extension was noted in the paravertebral soft tissues. Neurosurgical consultation was requested 10/01: When seen this afternoon the patient is awake and alert in bed watching TV. He says he has some pain to the surgical incision otherwise he is doing good. He then said that when he sits up he will feel pain to the upper back. He denies any numbness or tingling to the extremities or the thorax. He denies any headache, dizziness, chest pain, palpitations, irregular heartbeat, shortness of breath, abdominal pain or nausea. He denies any extremity pain. Upon examination the patient's sensation is intact to light touch throughout and he has improved muscle strength to both lower extremities. 10/02: This morning when seen the patient is awake and alert in bed watching TV. He says he is doing good. He denies any pain to the back or the extremities. He also denies any numbness or tingling to the extremities. His neuro exam is without any significant change. (Yevgeniy Magallon) Exam Results 09/30/17 09/30/17 10/01/17 10/01/17 10/02/17 10/02/17 06:00 18:00 06:00 18:00 06:00 18:00 Intake Total 1000 ml 5230 ml 700 ml 1910 ml Output Total 2600 ml 1610 ml 2340 ml 1825 ml 2320 ml Balance -2600 ml -610 ml 2890 ml -1125 ml -410 ml Intake Oral 0 ml 480 ml 650 ml 860 ml IV Total 1000 ml 1050 ml 50 ml 1050 ml Other 3700 ml Output Urine Total 2600 ml 1610 ml 1000 ml 1750 ml 2275 ml Drainage Total 140 ml 75 ml 45 ml Estimated Blood Loss 200 ml Other 1000 ml # Voids 4 # Bowel Movements 0 0 0 Vital Signs Date Time Temp Pulse Resp B/P (MAP) Pulse Ox O2 Delivery O2 Flow Rate FiO2 10/02/17 10:00 66 10/02/17 10:00 15 10/02/17 08:00 54 10/02/17 08:00 98.1 68 25 159/91 (113) 100 10/02/17 07:00 100 Room Air 10/02/17 06:00 66 10/02/17 04:00 66 10/02/17 04:00 96.4 68 14 161/102 (121) 100 10/02/17 02:00 56 10/02/17 00:00 52 10/02/17 00:00 98.0 52 9 119/77 (91) 100 10/01/17 22:00 64 10/01/17 20:00 58 10/01/17 20:00 98.1 57 14 126/78 (94) 100 10/01/17 19:00 100 Room Air 10/01/17 18:00 68 10/01/17 16:00 62 10/01/17 16:00 97.8 62 21 106/65 (79) 95 10/01/17 14:00 76 10/01/17 13:00 15 10/01/17 12:00 76 10/01/17 12:00 98.3 76 26 135/78 (97) 95 Arterial Line 10/01/17 10:00 73 10/01/17 08:00 97.5 77 16 146/89 (108) 100 10/01/17 08:00 76 10/01/17 07:00 100 Room Air 10/01/17 06:18 15 10/01/17 06:00 61 10/01/17 04:00 97.6 62 15 139/89 (106) 99 10/01/17 04:00 69 10/01/17 02:00 69 10/01/17 00:00 80 10/01/17 00:00 97.7 78 9 115/62 (79) 96 Automatic Cuff 09/30/17 22:00 77 09/30/17 21:00 85 09/30/17 21:00 100 Nasal Cannula 2.00 09/30/17 19:30 90 19 110/59 (76) 100 Nasal Cannula 4 09/30/17 19:15 101 18 119/79 (92) 100 Simple Mask 6 09/30/17 19:00 99 14 117/75 (89) 99 Mechanical Ventilator 50 09/30/17 18:45 94 14 109/66 (80) 100 Mechanical Ventilator 50 09/30/17 18:33 98.4 94 16 155/93 (113) 100 Mechanical Ventilator 50 09/30/17 18:30 99 30 09/30/17 12:00 97.8 12 99 09/30/17 10:00 75 09/30/17 08:00 74 09/30/17 08:00 97.8 79 12 152/99 (116) 99 09/30/17 07:00 Room Air 09/30/17 06:00 87 09/30/17 04:00 97.9 79 21 150/81 (104) 98 09/30/17 04:00 87 09/30/17 02:00 84 09/30/17 00:00 97.7 83 25 144/90 (108) 100 09/30/17 00:00 83 (Yevgeniy Magallon) Physical Examination GENERAL: Awake & alert in bed watching TV. Readily interacts. Affect normal. No apparent distress. MUSCULOSKELETAL: YING spontaneously. Thoracolumbar spine NTTP, NTTP at the surgical incision, dressing is intact w/shadowing noted to it, the NAYELI drain is to bulb suction w/serosanguinous drainage. NEUROLOGICAL: AAOx3. Speech clear & appropriate. Follows commands w/o difficulty. Spontaneous eye opening. Sensation is intact to light touch to all extremities. Muscle strength: RUE: 5/5 to all major flexion & extension muscle groups to include the wrist flexors & extensors and 4+/5 to the hand intrinsics & extrinsics. LUE: 5/5 to all major flexion & extension muscle groups to include the wrist flexors & extensors and the hand intrinsics & extrinsics. RLE 4 to 4+/5 to iliopsoas, 4+ to 5/5 to quadriceps, 4/5 to hamstrings, 5/5 to tibialis anterior, 5/5 to gastrocnemius and 3+/5 to extensor hallucis longus. LLE 4 to 4+/5 to iliopsoas, 4+ to 5/5 to quadriceps, 3+/5 to hamstrings, 5/5 to tibialis anterior, 5/5 to gastrocnemius and 4/5 to extensor hallucis longus. (Yevgeniy Magallon) Lab, Micro, Other Results Recent Impressions Thoracic Spine X-Ray 09/30/17 Signed Impressions: Service Date/Time: Saturday, September 30, 2017 15:48 - CONCLUSION: Good alignment on this postoperative study. Burton Duncan MD Thoracic Spine CT 09/30/17 Signed Impressions: Service Date/Time: Saturday, September 30, 2017 09:33 - CONCLUSION: Minimal compression deformities at T6, T7 and T8. Known widespread marrow infiltration throughout the thoracic spine is much better visualized on recent MRI. Paravertebral soft tissue mass at T4 results in some degree of spinal stenosis and extends along the lateral aspects of the vertebral body bilaterally. Scoliosis and degenerative changes of the thoracic spine. Michael Cuevas MD Chest X-Ray 09/30/17 Signed Impressions: Service Date/Time: Saturday, September 30, 2017 04:58 - CONCLUSION: 1. Linear atelectasis or scarring at the lung bases. No effusion or pneumothorax. Alberto Moses MD Chest CT 09/30/17 Signed Impressions: Service Date/Time: Saturday, September 30, 2017 09:33 - CONCLUSION: Widespread bony metastatic disease described in detail on MRI of the thoracic and lumbar spine. Sagittal primary is not evident in the chest Minimal bibasilar parenchymal changes Minimal nonspecific axillary adenopathy.. Ant Rod MD FACR Cervical Spine CT 09/30/17 0000 Signed Impressions: Service Date/Time: Saturday, September 30, 2017 09:27 - CONCLUSION: 1. Some mottling of the lower cervical spine. MRI of the cervical spine with and without contrast would be much more sensitive to rule out metastatic disease if clinically indicated. 2. No acute fracture or prevertebral soft tissue swelling. 3. Cervical spondylosis at C5-6, C6-7 and C7-T1. 4. Mild left neural foraminal narrowing at C5-6, C6-7 and C7-T1. Michael Cuevas MD Abdomen/Pelvis CT 09/30/17 0000 Signed Impressions: Service Date/Time: Saturday, September 30, 2017 09:33 - CONCLUSION: Widespread bony metastatic disease. Site of primary is not identified in the abdomen or pelvis. Ant Rod MD FACR Laboratory Tests Test 09/29/17 21:55 09/30/17 04:48 09/30/17 08:46 09/30/17 19:10 Nasal Screen MRSA (PCR) MRSA NOT DETECTED White Blood Count 2.6 TH/MM3 6.7 TH/MM3 Red Blood Count 4.34 MIL/MM3 3.66 MIL/MM3 Hemoglobin 13.6 GM/DL 11.4 GM/DL Hematocrit 39.6 % 33.3 % Mean Corpuscular Volume 91.0 FL 90.8 FL Mean Corpuscular Hemoglobin 31.4 PG 31.2 PG Mean Corpuscular Hemoglobin Concent 34.5 % 34.3 % Red Cell Distribution Width 14.9 % 15.0 % Platelet Count 238 TH/MM3 288 TH/MM3 Mean Platelet Volume 8.5 FL 7.8 FL Neutrophils (%) (Auto) 53.7 % Lymphocytes (%) (Auto) 42.1 % Monocytes (%) (Auto) 3.6 % Eosinophils (%) (Auto) 0.1 % Basophils (%) (Auto) 0.5 % Neutrophils # (Auto) 1.4 TH/MM3 Lymphocytes # (Auto) 1.1 TH/MM3 Monocytes # (Auto) 0.1 TH/MM3 Eosinophils # (Auto) 0.0 TH/MM3 Basophils # (Auto) 0.0 TH/MM3 CBC Comment AUTO DIFF Differential Comment AUTO DIFF CONFIRMED Blood Urea Nitrogen 13 MG/DL 13 MG/DL Creatinine 0.87 MG/DL 0.89 MG/DL Random Glucose 390 MG/DL 233 MG/DL Total Protein 9.4 GM/DL Albumin 3.5 GM/DL Calcium Level 9.6 MG/DL 8.8 MG/DL Alkaline Phosphatase 134 U/L Aspartate Amino Transf (AST/SGOT) 83 U/L Alanine Aminotransferase (ALT/SGPT) 70 U/L Total Bilirubin 0.5 MG/DL Sodium Level 132 MEQ/L 138 MEQ/L Potassium Level 4.3 MEQ/L 3.7 MEQ/L Chloride Level 99 MEQ/L 104 MEQ/L Carbon Dioxide Level 23.5 MEQ/L 23.9 MEQ/L Anion Gap 10 MEQ/L 10 MEQ/L Estimat Glomerular Filtration Rate 108 ML/MIN 106 ML/MIN Prostate Specific Antigen 0.11 NG/ML Test 10/01/17 04:20 White Blood Count 8.8 TH/MM3 Red Blood Count 3.58 MIL/MM3 Hemoglobin 11.4 GM/DL Hematocrit 32.4 % Mean Corpuscular Volume 90.5 FL Mean Corpuscular Hemoglobin 31.7 PG Mean Corpuscular Hemoglobin Concent 35.0 % Red Cell Distribution Width 15.0 % Platelet Count 254 TH/MM3 Mean Platelet Volume 8.1 FL Blood Urea Nitrogen 12 MG/DL Creatinine 0.64 MG/DL Random Glucose 149 MG/DL Calcium Level 8.8 MG/DL Sodium Level 139 MEQ/L Potassium Level 4.1 MEQ/L Chloride Level 107 MEQ/L Carbon Dioxide Level 27.2 MEQ/L Anion Gap 5 MEQ/L Estimat Glomerular Filtration Rate 155 ML/MIN (Yevgeniy Magallon) Medical Decision Making Impression and Plan Impression: Spinal cord compression at the level of T4 with severe thoracic myelopathy with paraparesis Spinal cord canal encroachment at L2 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 NAYELI drain w/120 mL output the past 24 hrs as of shift change this morning. Physical Therapy recommends inpatient rehab for further therapy. POD #2 () s/p: T4 bilateral laminectomy facetectomy, resection of epidural tumor, T3-T5 arthrodhesis with transpedicular screws and rods, T3-T5 posterolateral fusion using autologous bone fraft and demineralized bone matrix Plan: Neuro checks. Radiation Oncology consult. Hold pharmacologic DVT prophylaxis. Mechanical DVT prophylaxis. Stress ulcer prophylaxis. Clamshell brace when OOB. Mobilise patient w/assistance. Physical Therapy. D/C Evangelista today. Patient is able to transfer to regular med/surg floor today. (Yevgeniy Magallon) Attending Statement The exam, history, and the medical decision-making described in the above note were completed with the assistance of the mid-level provider. I reviewed and agree with the findings presented. I attest that I had a [id number] encounter with the patient on the same day, and personally performed and documented my assessment and findings in the medical record. On examination today, lower extremity motor function remains significantly improved compared to preoperative, mostly 4-4+/5 in the lower extremities. He continues to have significant moderately bloody drain output. Continue drain for now. Continue therapy (Anish Durand MD) Yevgeniy Magallon Oct 02, 2017 12:00 Anish Durand MD Oct 02, 2017 21:18
--- NOTE | 2017-10-02 12:07 | HHI.PR ---
Subjective Remarks No events overnight. Patient in bed appears in nad at this time. Says pain in his back is fairly controlled by meds. No n/v/d. With constipation. Objective Vitals Vital Signs Date Time Temp Pulse Resp B/P (MAP) Pulse Ox O2 Delivery O2 Flow Rate FiO2 10/02/17 10:00 66 10/02/17 10:00 15 10/02/17 08:00 54 10/02/17 08:00 98.1 68 25 159/91 (113) 100 10/02/17 07:00 100 Room Air 10/02/17 06:00 66 10/02/17 04:00 66 10/02/17 04:00 96.4 68 14 161/102 (121) 100 10/02/17 02:00 56 10/02/17 00:00 52 10/02/17 00:00 98.0 52 9 119/77 (91) 100 10/01/17 22:00 64 10/01/17 20:00 58 10/01/17 20:00 98.1 57 14 126/78 (94) 100 10/01/17 19:00 100 Room Air 10/01/17 18:00 68 10/01/17 16:00 62 10/01/17 16:00 97.8 62 21 106/65 (79) 95 10/01/17 14:00 76 10/01/17 13:00 15 I/O 10/01/17 10/01/17 10/01/17 10/02/17 10/02/17 10/02/17 07:00 15:00 23:00 07:00 15:00 23:00 Intake Total 1530 ml 50 ml 700 ml 1860 ml Output Total 1140 ml 1825 ml 2320 ml Balance 390 ml 50 ml -1125 ml -460 ml Intake Oral 480 ml 650 ml 860 ml IV Total 1050 ml 50 ml 50 ml 1000 ml Output Urine Total 1000 ml 1750 ml 2275 ml Drainage Total 140 ml 75 ml 45 ml # Bowel Movements 0 0 Result Diagram: 10/01/17 0420 10/01/17 0420 Imaging Last Impressions Thoracic Spine X-Ray 09/30/17 0000 Signed Impressions: Service Date/Time: Saturday, September 30, 2017 15:48 - CONCLUSION: Good alignment on this postoperative study. Burton Duncan MD Thoracic Spine CT 09/30/17 Signed Impressions: Service Date/Time: Saturday, September 30, 2017 09:33 - CONCLUSION: Minimal compression deformities at T6, T7 and T8. Known widespread marrow infiltration throughout the thoracic spine is much better visualized on recent MRI. Paravertebral soft tissue mass at T4 results in some degree of spinal stenosis and extends along the lateral aspects of the vertebral body bilaterally. Scoliosis and degenerative changes of the thoracic spine. Michael Cuevas MD Chest X-Ray 09/30/17 Signed Impressions: Service Date/Time: Saturday, September 30, 2017 04:58 - CONCLUSION: 1. Linear atelectasis or scarring at the lung bases. No effusion or pneumothorax. Alberto Moses MD Chest CT 09/30/17 Signed Impressions: Service Date/Time: Saturday, September 30, 2017 09:33 - CONCLUSION: Widespread bony metastatic disease described in detail on MRI of the thoracic and lumbar spine. Sagittal primary is not evident in the chest Minimal bibasilar parenchymal changes Minimal nonspecific axillary adenopathy.. Ant Rod MD FACR Cervical Spine CT 09/30/17 Signed Impressions: Service Date/Time: Saturday, September 30, 2017 09:27 - CONCLUSION: 1. Some mottling of the lower cervical spine. MRI of the cervical spine with and without contrast would be much more sensitive to rule out metastatic disease if clinically indicated. 2. No acute fracture or prevertebral soft tissue swelling. 3. Cervical spondylosis at C5-6, C6-7 and C7-T1. 4. Mild left neural foraminal narrowing at C5-6, C6-7 and C7-T1. Michael Cuevas MD Abdomen/Pelvis CT 09/30/17 Signed Impressions: Service Date/Time: Saturday, September 30, 2017 09:33 - CONCLUSION: Widespread bony metastatic disease. Site of primary is not identified in the abdomen or pelvis. Ant Rod MD FACR Thoracic Spine MRI 09/29/17 Signed Impressions: Service Date/Time: September 23:08 - CONCLUSION: 1. There is widespread metastatic disease to the thoracic spine. At the level of T4 tumor extends into the spinal canal with at least moderate compression on the thoracic cord from the lateral aspect bilaterally. There is also extensive soft tissue tumor in the neural foramina bilaterally and in the paravertebral soft tissues at this level. 2. Questionable mild pathologic fracture of T8 and possibly T7. Alberto Moses MD Lumbar Spine MRI 09/29/17 0000 Signed Impressions: Service Date/Time: September 23:08 - CONCLUSION: 1. Widespread bony metastatic disease to the lumbar spine. There is soft tissue tumor invasion of the spinal canal at L2 with effacement of the lateral recesses bilaterally and encasement of the exiting right L2 nerve root. There is also extension of enhancing tumor into the paravertebral soft tissues. No acute fracture or spondylolisthesis. Alberto Moses MD Objective Remarks GENERAL: Well-nourished, well-developed patient; pleasant and cooperative. Tearful when discussing diagnosis. CARDIOVASCULAR: Regular rate and rhythm without murmurs, gallops, or rubs. RESPIRATORY: Breath sounds diminished at bases, equal bilaterally. No accessory muscle use. GASTROINTESTINAL: Abdomen soft, non-tender, nondistended. EXTREMITIES: No cyanosis, or edema. NEUROLOGICAL: Awake, alert, and oriented x 3. Hip flexion is 2/5 bilaterally, seems very slightly weaker on left than right; ankle flexion 4+/5. Hand energy project engineer bilaterally 5-/5. Shoulder shrug equal. 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 Martínez is a 61 y/o male with a history of type 2 diabetes mellitus with peripheral neuropathy, hypertension, and hepatitis C (treatment completed 2 years ago) who presented to [facility] transfer from [facility] in [place] for neurosurgical evaluation and treatment of widespread metastatic spinal cancer with hemiparesis. Multiple spinal cord metastases with cord compression with unknown primary site S/p T4 bilateral laminectomy facetectomy, resection of epidural tumor, T3-T5 arthrodesis with transpedicular screws and rods, T3-T5 posterolateral fusion using autologous bone graft and demineralized bone matrix by Dr Gillette on 09/30/17 - consult neurosurgery - consult oncology - Decadron 4 mg IV q6h - Oxycodone 10/325 q4h p.o. PRN pain > 4 - Morphine 4 mg IV q3h PRN breakthrough pain - continuous cardiac telemetry to monitor for arrhythmia - neurochecks q4h - VS q4h Hypertension - resume home losartan - monitor trends in blood pressure and adjust treatment as indicated Type 2 DM - continue home Levemir - accuchecks AC and HS with low dose Novolog - monitor trends in blood glucose readings and adjust treatments as indicated - PRN hypoglycemia treatment protocol Constipation. Stool softeners/laxatives as need. DVT prophylaxis - SCDs Discussed Condition With patient, ICU nurse Plan to transfer out of ICU if OK with neurosurgeon, as patient is improving. Tashia Yu MD Oct 02, 2017 12:07
[2017-10-02] MEDS: INSULIN DETEMIR 100 UNITS/ML VIAL SQ SCH (20:25)
[2017-10-03] VITALS (8 sets, daily range): BP systolic 135–167; BP diastolic 84–106; PULSE 56–82; RESP 14–26; TEMP 97.3–98.2; O2SAT 99–100
[2017-10-03] MEDS: MORPHINE SULFATE 4 MG/ML INJ IV PUSH PRN ×2 (02:40→06:31)
[2017-10-03] MEDS: DEXAMETHASONE SOD PHOS 4 MG/ML VIAL IV PUSH SCH ×3 (05:37→17:51)
[2017-10-03] MEDS: NS + KCL 20 MEQ INJ 1,000 ML IV SCH ×3 (06:56→19:00)
[2017-10-03] MEDS: INSULIN ASPART SUPPLEMENTAL SCALE SQ SCH ×4 (08:00→21:30)
[2017-10-03] MEDS: SODIUM CHLORIDE 0.9% FLUSH 10 ML FLUSH IV FLUSH SCH ×2 (09:00→21:04)
[2017-10-03] MEDS: PANTOPRAZOLE SOD 40 MG DELAYED RELEASE TAB PO SCH (09:00)
[2017-10-03] MEDS: LOSARTAN 50 MG TAB PO SCH (09:00)
[2017-10-03] MEDS: DOCUSATE SODIUM 100 MG CAP PO SCH ×2 (09:00→21:04)
--- NOTE | 2017-10-03 11:29 | HHI.PR ---
Subjective Remarks He was walking to the bathroom with PT help. Has some pain however is controlled by current medications. Her vital signs are stable at this time. No neuropathy. No nausea no vomiting no diarrhea or constipation. Denies any chest pain, palpitations, lightheadedness. Overall he feels better today Objective Vitals Vital Signs Date Time Temp Pulse Resp B/P (MAP) Pulse Ox O2 Delivery O2 Flow Rate FiO2 10/03/17 07:00 100 Room Air 10/03/17 06:00 57 10/03/17 04:00 98.0 66 15 143/97 (112) 100 10/03/17 04:00 66 10/03/17 02:00 56 10/03/17 00:00 62 10/03/17 00:00 98.1 56 14 135/84 (101) 100 10/02/17 22:00 66 10/02/17 20:00 98.1 68 16 140/84 (102) 100 10/02/17 20:00 68 10/02/17 19:00 100 Room Air 10/02/17 18:00 61 10/02/17 16:00 97.8 67 15 152/95 (114) 100 10/02/17 16:00 64 10/02/17 14:49 12 10/02/17 14:00 67 10/02/17 12:00 98.0 67 14 156/79 (104) 100 10/02/17 12:00 67 I/O 10/02/17 10/02/17 10/02/17 10/03/17 10/03/17 10/03/17 07:00 15:00 23:00 07:00 15:00 23:00 Intake Total 1860 ml 1000 ml 1100 ml 1720 ml Output Total 2320 ml 2340 ml 2935 ml Balance -460 ml 1000 ml -1240 ml -1215 ml Intake Oral 860 ml 1100 ml 720 ml IV Total 1000 ml 1000 ml 1000 ml Output Urine Total 2275 ml 2300 ml 2900 ml Drainage Total 45 ml 40 ml 35 ml # Voids 3 # Bowel Movements 0 Result Diagram: 10/01/17 0420 10/01/17 0420 Imaging Last Impressions Thoracic Spine X-Ray 09/30/17 0000 Signed Impressions: Service Date/Time: Saturday, September 30, 2017 15:48 - CONCLUSION: Good alignment on this postoperative study. Burton Duncan MD Thoracic Spine CT 09/30/17 0000 Signed Impressions: Service Date/Time: Saturday, September 30, 2017 09:33 - CONCLUSION: Minimal compression deformities at T6, T7 and T8. Known widespread marrow infiltration throughout the thoracic spine is much better visualized on recent MRI. Paravertebral soft tissue mass at T4 results in some degree of spinal stenosis and extends along the lateral aspects of the vertebral body bilaterally. Scoliosis and degenerative changes of the thoracic spine. Michael Cuevas MD Chest X-Ray 09/30/17 Signed Impressions: Service Date/Time: Saturday, September 30, 2017 04:58 - CONCLUSION: 1. Linear atelectasis or scarring at the lung bases. No effusion or pneumothorax. Alberto Moses MD Chest CT 09/30/17 Signed Impressions: Service Date/Time: Saturday, September 30, 2017 09:33 - CONCLUSION: Widespread bony metastatic disease described in detail on MRI of the thoracic and lumbar spine. Sagittal primary is not evident in the chest Minimal bibasilar parenchymal changes Minimal nonspecific axillary adenopathy.. Ant Rod MD FACR Cervical Spine CT 09/30/17 Signed Impressions: Service Date/Time: Saturday, September 30, 2017 09:27 - CONCLUSION: 1. Some mottling of the lower cervical spine. MRI of the cervical spine with and without contrast would be much more sensitive to rule out metastatic disease if clinically indicated. 2. No acute fracture or prevertebral soft tissue swelling. 3. Cervical spondylosis at C5-6, C6-7 and C7-T1. 4. Mild left neural foraminal narrowing at C5-6, C6-7 and C7-T1. Michael Cuevas MD Abdomen/Pelvis CT 09/30/17 Signed Impressions: Service Date/Time: Saturday, September 30, 2017 09:33 - CONCLUSION: Widespread bony metastatic disease. Site of primary is not identified in the abdomen or pelvis. Ant Rod MD FACR Thoracic Spine MRI 09/29/17 0000 Signed Impressions: Service Date/Time: September 23:08 - CONCLUSION: 1. There is widespread metastatic disease to the thoracic spine. At the level of T4 tumor extends into the spinal canal with at least moderate compression on the thoracic cord from the lateral aspect bilaterally. There is also extensive soft tissue tumor in the neural foramina bilaterally and in the paravertebral soft tissues at this level. 2. Questionable mild pathologic fracture of T8 and possibly T7. Alberto Moses MD Lumbar Spine MRI 09/29/17 0000 Signed Impressions: Service Date/Time: September 23:08 - CONCLUSION: 1. Widespread bony metastatic disease to the lumbar spine. There is soft tissue tumor invasion of the spinal canal at L2 with effacement of the lateral recesses bilaterally and encasement of the exiting right L2 nerve root. There is also extension of enhancing tumor into the paravertebral soft tissues. No acute fracture or spondylolisthesis. Alberto Moses MD Objective Remarks GENERAL: Well-nourished, well-developed patient; pleasant and cooperative. Tearful when discussing diagnosis. CARDIOVASCULAR: Regular rate and rhythm without murmurs, gallops, or rubs. RESPIRATORY: Breath sounds diminished at bases, equal bilaterally. No accessory muscle use. GASTROINTESTINAL: Abdomen soft, non-tender, nondistended. EXTREMITIES: No cyanosis, or edema. NEUROLOGICAL: Awake, alert, and oriented x 3. Hip flexion is 2/5 bilaterally, seems very slightly weaker on left than right; ankle flexion 4+/5. Hand manager machine bilaterally 5-/5. Shoulder shrug equal. 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 Martínez is a 61 y/o male with a history of type 2 diabetes mellitus with peripheral neuropathy, hypertension, and hepatitis C (treatment completed 2 years ago) who presented to [facility] in transfer from [facility] in [place] for neurosurgical evaluation and treatment of widespread metastatic spinal cancer with hemiparesis. Multiple spinal cord metastases with cord compression with unknown primary site S/p T4 bilateral laminectomy facetectomy, resection of epidural tumor, T3-T5 arthrodesis with transpedicular screws and rods, T3-T5 posterolateral fusion using autologous bone graft and demineralized bone matrix by Dr Gillette on 09/30/17 - consult neurosurgery - consult oncology - Decadron 4 mg IV q6h neurosurgeon - Oxycodone 10/325 q4h p.o. PRN pain > 4 - Morphine 4 mg IV q3h PRN breakthrough pain - continuous cardiac telemetry to monitor for arrhythmia - neurochecks q4h - VS q4h Hypertension - resume home losartan - monitor trends in blood pressure and adjust treatment as indicated Type 2 DM - continue home Levemir - accuchecks AC and HS with low dose Novolog - monitor trends in blood glucose readings and adjust treatments as indicated - PRN hypoglycemia treatment protocol Constipation. Stool softeners/laxatives as need. DVT prophylaxis - SCDs Discussed Condition With patient, ICU nurse Plan to transfer out of ICU if OK with neurosurgeon, as patient is improving. Continue physical therapy Tashia Yu MD Oct 03, 2017 11:29
--- NOTE | 2017-10-03 13:40 | PD.ONC.PN ---
Subjective Subjective Remarks Afebrile overnight. Patient resting in room. reports improving strength in legs. states he was able to walk to bathroom with assistance of walker. Objective Data Date Time Temp Pulse Resp B/P (MAP) Pulse Ox O2 Delivery O2 Flow Rate FiO2 10/03/17 07:00 100 Room Air 10/03/17 06:00 57 10/03/17 04:00 98.0 66 15 143/97 (112) 100 10/03/17 04:00 66 10/03/17 02:00 56 10/03/17 00:00 62 10/03/17 00:00 98.1 56 14 135/84 (101) 100 10/02/17 22:00 66 10/02/17 20:00 98.1 68 16 140/84 (102) 100 10/02/17 20:00 68 10/02/17 19:00 100 Room Air 10/02/17 18:00 61 10/02/17 16:00 97.8 67 15 152/95 (114) 100 10/02/17 16:00 64 10/02/17 14:49 12 10/02/17 14:00 67 10/03/17 10/03/17 10/03/17 07:00 15:00 23:00 Intake Total 1720 ml Output Total 2935 ml Balance -1215 ml Result Diagram: 10/01/1741910/01/17 042 Administered Medications Medications (Trade) Dose Ordered Sig/Lynn Route PRN Reason Start Time Stop Time Status Last Admin Dose Admin Sodium Chloride (NS Flush) 2 ml BID IV FLUSH 09/30/17 09:00 10/03/17 09:00 Magnesium Hydroxide (Milk Of Magnesia Liq) 30 ml Q12H PRN PO Mild constipation 09/29/17 22:15 10/02/17 08:39 Sennosides (Senokot) 17.2 mg Q12H PRN PO Moderate constipation 09/29/17 22:15 10/02/17 16:45 Morphine Sulfate (Morphine Inj) 4 mg Q3H PRN IV PUSH breakthrough pain 09/29/17 22:30 10/01/17 21:09 Dexamethasone Sodium Phosphate (Decadron Inj) 4 mg Q6HR IV PUSH 09/30/17 00:00 10/03/17 12:00 Losartan Potassium (Cozaar) 50 mg DAILY PO 09/30/17 09:00 10/03/17 09:00 Insulin Detemir (Levemir Inj) 30 units HS SQ 09/30/17 21:00 10/02/17 20:25 Potassium Chloride/Sodium Chloride 1,000 ml @ 100 mls/hr Q10H IV 09/30/17 18:56 10/03/17 00:00 Docusate Sodium (Colace) 100 mg BID PO 09/30/17 21:00 10/03/17 09:00 Pantoprazole Sodium (Protonix) 40 mg DAILY PO 10/01/17 09:00 10/03/17 09:00 Acetaminophen/ Hydrocodone Bitart ([place] 10-325 Mg) 2 tab Q4H PRN PO PAIN SCALE 6 TO 10 09/30/17 19:00 10/02/17 23:05 Morphine Sulfate (Morphine Inj) 4 mg Q2H PRN IV PUSH PAIN SCALE 7 TO 10 09/30/17 19:00 10/03/17 06:31 Insulin Aspart (NovoLOG SUPPLEMENTAL SCALE) 1 ACHS SLIDING SCALE SQ 10/01/17 08:00 10/03/17 12:00 Objective Remarks GENERAL: Pleasant middle aged male, sitting up in chair next to bed. TLSO brace in place. SKIN: Warm and dry. HEAD: Normocephalic. EYES: No scleral icterus. No injection or drainage. NECK: Supple, trachea midline. CARDIOVASCULAR: Regular rate and rhythm RESPIRATORY: Breath sounds equal bilaterally. No accessory muscle use. GASTROINTESTINAL: Abdomen soft, non-tender, nondistended. EXTREMITIES: No cyanosis NEUROLOGICAL: awake and alert. normal speech. able to move all extremities. able to move legs but weakness is noted with resistance. Assessment/Plan Assessment 61y/o male with extensive metastatic disease burden involving the thoracic and lumbar spine with resultant weakness of the lower extremities. Primary concern is for widespread underlying neoplasm. history of hypertension and diabetes HPI (brought forward from initial consult for continuity of care) two months ago patient began to notice increasing back pain which initially started in the lower back and then progressed to involve his chest. One week ago the pain worsened and he developed weakness in his legs. He reports not being able to stand or walk. He presented to the [facility] and underwent imaging studies of the lumbar vertebral bodies and was noted to have extensive metastases. He was assessed to have spinal cord compression and was transferred to [facility] for neurosurgical evaluation. At [facility] on 09/29/2017 he underwent thoracic and lumbar spine MRI with and without contrast which revealed widespread metastatic disease to the thoracic spine with moderate compression of the thoracic spinal cord. Questionable pathologic fracture of T8 and T7. A lumbar vertebral body MRI with and without contrast revealed additional widespread bony metastatic disease with invasion of the spinal canal at the level of L2. Extensive tumor extension was noted in the paravertebral soft tissues as well. underwent T4 bilateral laminectomy, resection of epidural tumor. Plan 1. await pathology 2. continue pain management. 3. continue physical therapy. Jovana Madrid Oct 03, 2017 13:40
--- NOTE | 2017-10-03 13:55 | HHI.NSPN ---
(Shanique Rojas) Note Status Status: Progress Note (Shanique Rjoas) Interval History Interval History Mr. Martínez is a 61-year-old male who wit history of hypertension and diabetes mellitus who developed increasing back pain. His pain started in the mid back and progressed to involve the anterolateral wall of his chest. He had multiple ER visits at [facility]. 09/30: One week ago the pain worsened and he developed weakness in his legs. He reports not being able to stand or walk since Tuesday. He presented to the [facility] last night and underwent imaging studies of the lumbar vertebral bodies and was noted to have extensive metastases. He was found to have spinal cord compression and he was transferred to [facility] for neurosurgical evaluation. His legs are getting progressively weaker. He developed numbness in his chest and lower body. He underwent thoracic and lumbar spine MRI with and without contrast which revealed widespread metastatic disease to the thoracic spine with moderate to severe compression of the thoracic spinal cord at T4. Questionable pathologic fracture of T8 and T7. A lumbar vertebral body MRI with and without contrast revealed additional widespread bony metastatic disease with invasion of the spinal canal at the level of L2. There was extensive tumor extension was noted in the paravertebral soft tissues. Neurosurgical consultation was requested 10/01: When seen this afternoon the patient is awake and alert in bed watching TV. He says he has some pain to the surgical incision otherwise he is doing good. He then said that when he sits up he will feel pain to the upper back. He denies any numbness or tingling to the extremities or the thorax. He denies any headache, dizziness, chest pain, palpitations, irregular heartbeat, shortness of breath, abdominal pain or nausea. He denies any extremity pain. Upon examination the patient's sensation is intact to light touch throughout and he has improved muscle strength to both lower extremities. 10/02: This morning when seen the patient is awake and alert in bed watching TV. He says he is doing good. He denies any pain to the back or the extremities. He also denies any numbness or tingling to the extremities. His neuro exam is without any significant change. 10/03: doing well, legs are getting stronger, surgical pain controlled. (Shanique Rojas) Labs, Micro, & Vital Signs Results Date Time Temp Pulse Resp B/P (MAP) Pulse Ox O2 Delivery O2 Flow Rate FiO2 10/03/17 07:00 100 Room Air 10/03/17 06:00 57 10/03/17 04:00 98.0 66 15 143/97 (112) 100 10/03/17 04:00 66 10/03/17 02:00 56 10/03/17 00:00 62 10/03/17 00:00 98.1 56 14 135/84 (101) 100 10/02/17 22:00 66 10/02/17 20:00 98.1 68 16 140/84 (102) 100 10/02/17 20:00 68 10/02/17 19:00 100 Room Air 10/02/17 18:00 61 10/02/17 16:00 97.8 67 15 152/95 (114) 100 10/02/17 16:00 64 10/02/17 14:49 12 10/02/17 14:00 67 Constitutional Vital Signs Date Time Temp Pulse Resp B/P (MAP) Pulse Ox O2 Delivery O2 Flow Rate FiO2 10/03/17 07:00 100 Room Air 10/03/17 06:00 57 10/03/17 04:00 98.0 66 15 143/97 (112) 100 10/03/17 04:00 66 10/03/17 02:00 56 10/03/17 00:00 62 10/03/17 00:00 98.1 56 14 135/84 (101) 100 10/02/17 22:00 66 10/02/17 20:00 98.1 68 16 140/84 (102) 100 10/02/17 20:00 68 10/02/17 19:00 100 Room Air 10/02/17 18:00 61 10/02/17 16:00 97.8 67 15 152/95 (114) 100 10/02/17 16:00 64 10/02/17 14:49 12 10/02/17 14:00 67 (Shanique Rojas) Review of Systems Constitutional: DENIES: Fever, Chills Cardiovascular: DENIES: Chest pain Neurologic: COMPLAINS OF: Localized weakness, DENIES: Headache (Shanique Rojas) Physical Exam Awake & alert. No acute distress. NAYELI drain with 75 cc output overnight. Speech clear & appropriate. Follows commands w/o difficulty. Sensation is intact to light touch lower extremities. Muscle strength: Moves upper extremities well. In lower extremities 4 to 4- major muscle groups bilaterally (Shanique Rojas) Medications Current Medications Current Medications Medications (Trade) Dose Ordered Sig/Lynn Route PRN Reason Start Time Stop Time Status Last Admin Dose Admin Sodium Chloride (NS Flush) 2 ml UNSCH PRN IV FLUSH FLUSH AFTER USING IV ACCESS 09/29/17 22:15 Sodium Chloride (NS Flush) 2 ml BID IV FLUSH 09/30/17 09:00 10/03/17 09:00 Ondansetron HCl (Zofran Inj) 4 mg Q6H PRN IVP NAUSEA OR VOMITING 09/29/17 22:15 Naloxone HCl (Narcan Inj) 0.4 mg UNSCH PRN IV PUSH SEE LABEL COMMENTS 09/29/17 22:15 Magnesium Hydroxide (Milk Of [place]st[place]art Liq) 30 ml Q12H PRN PO Mild constipation 09/29/17 22:15 10/02/17 08:39 Sennosides (Senokot) 17.2 mg Q12H PRN PO Moderate constipation 09/29/17 22:15 10/02/17 16:45 Bisacodyl (Dulcolax Supp) 10 mg DAILY PRN RECTAL SEVERE CONSITIPATION 09/29/17 22:15 Morphine Sulfate (Morphine Inj) 4 mg Q3H PRN IV PUSH breakthrough pain 09/29/17 22:30 10/01/17 21:09 Dexamethasone Sodium Phosphate (Decadron Inj) 4 mg Q6HR IV PUSH 09/30/17 00:00 10/03/17 12:00 Losartan Potassium (Cozaar) 50 mg DAILY PO 09/30/17 09:00 10/03/17 09:00 Insulin Detemir (Levemir Inj) 30 units HS SQ 09/30/17 21:00 10/02/17 20:25 Oxycodone/ Acetaminophen (Percocet 10-325 Mg) 1 tab Q4HR PRN PO pain > 4 09/30/17 03:45 Potassium Chloride/Sodium Chloride 1,000 ml @ 100 mls/hr Q10H IV 09/30/17 18:56 10/03/17 00:00 Docusate Sodium (Colace) 100 mg BID PO 09/30/17 21:00 10/03/17 09:00 Pantoprazole Sodium (Protonix) 40 mg DAILY PO 10/01/17 09:00 10/03/17 09:00 Acetaminophen/ Hydrocodone Bitart ([place]ley 10-325 Mg) 1 tab Q4H PRN PO PAIN SCALE 1 TO 5 09/30/17 19:00 Acetaminophen/ Hydrocodone Bitart ([place]ley 10-325 Mg) 2 tab Q4H PRN PO PAIN SCALE 6 TO 10 09/30/17 19:00 10/02/17 23:05 Morphine Sulfate (Morphine Inj) 2 mg Q2H PRN IV PUSH PAIN SCALE 1 TO 6 09/30/17 19:00 Morphine Sulfate (Morphine Inj) 4 mg Q2H PRN IV PUSH PAIN SCALE 7 TO 10 09/30/17 19:00 10/03/17 06:31 Acetaminophen (Tylenol) 650 mg Q4H PRN PO TEMPERATURE > 101.5 F 09/30/17 19:00 Dextrose (D50w (Vial) Inj) 50 ml UNSCH PRN IV PUSH HYPOGLYCEMIA-SEE COMMENTS 10/01/17 06:00 Glucagon (Glucagon Inj) 1 mg UNSCH PRN OTHER HYPOGLYCEMIA-SEE COMMENTS 10/01/17 06:00 Insulin Aspart (NovoLOG SUPPLEMENTAL SCALE) 1 ACHS SLIDING SCALE SQ 10/01/17 08:00 10/03/17 12:00 (Shanique Rojas) Medical Decision Making MDM Remarks 61 year old male presented with severe thoracic myelopathy with paraparesis MRI Showed spine mass with cord compression at T4 level multilevel bony spine lesions on work up he underwent T4 bilateral laminectomy facetectomy, resection of epidural tumor, T3-T5 arthrodhesis with transpedicular screws and rods, T3-T5 posterolateral fusion using autologous bone graft and demineralized bone matrix 09/30/17 patient is showing improvement in his lower extremity strength (Shanique Rojas) Plan Plan Remarks cont supportive care dc NAYELI drain cont PT, encourage mobilization OOB with assistance TLSO on when out of bed rehab efforts f/u pathology (Shanique Rojas) Attending Statement The exam, history, and the medical decision-making described in the above note were completed with the assistance of the mid-level provider. I reviewed and agree with the findings presented. I attest that I had a [id number] encounter with the patient on the same day, and personally performed and documented my assessment and findings in the medical record. (Bobo Gillette MD) Shanique Rojas Oct 03, 2017 13:55 Bobo Gillette MD Oct 03, 2017 17:08
[2017-10-03] MEDS: ACETAMINOPHEN/HYDROcodone 325 MG/10 MG TAB PO PRN (18:03)
[2017-10-03] MEDS: MORPHINE SULFATE 2 MG/ML INJ IV PUSH PRN (21:04)
[2017-10-03] MEDS: INSULIN DETEMIR 100 UNITS/ML VIAL SQ SCH (21:31)
[2017-10-04 00:28] VITALS: BP 138/90; PULSE 60; RESP 18; TEMP 97.7; O2SAT 98
[2017-10-04] MEDS: DEXAMETHASONE SOD PHOS 4 MG/ML VIAL IV PUSH SCH ×2 (00:55→05:17)
[2017-10-04] MEDS: ACETAMINOPHEN/HYDROcodone 325 MG/10 MG TAB PO PRN ×2 (00:55→18:56)
[2017-10-04] MEDS: NS + KCL 20 MEQ INJ 1,000 ML IV SCH (05:17)
[2017-10-04] MEDS: MORPHINE SULFATE 4 MG/ML INJ IV PUSH PRN (05:18)
[2017-10-04 05:34] VITALS: BP 140/80; PULSE 69; RESP 18; TEMP 97.4; O2SAT 100
[2017-10-04] MEDS: INSULIN ASPART SUPPLEMENTAL SCALE SQ SCH ×4 (08:00→21:46)
[2017-10-04 08:54] VITALS: BP 162/101; PULSE 60; RESP 18; TEMP 97.5; O2SAT 100
[2017-10-04] MEDS: SODIUM CHLORIDE 0.9% FLUSH 10 ML FLUSH IV FLUSH SCH ×2 (09:00→20:49)
[2017-10-04] MEDS: DOCUSATE SODIUM 100 MG CAP PO SCH ×2 (09:02→20:49)
[2017-10-04] MEDS: PANTOPRAZOLE SOD 40 MG DELAYED RELEASE TAB PO SCH (09:02)
[2017-10-04] MEDS: LOSARTAN 50 MG TAB PO SCH (09:02)
--- NOTE | 2017-10-04 09:29 | HHI.NSPN ---
(Shanique Rojas) Note Status Status: Progress Note (Shanique Rojas) Interval History Interval History Mr. Martínez is a 61-year-old male who wit history of hypertension and diabetes mellitus who developed increasing back pain. His pain started in the mid back and progressed to involve the anterolateral wall of his chest. He had multiple ER visits at [facility]. 09/30: One week ago the pain worsened and he developed weakness in his legs. He reports not being able to stand or walk since Tuesday. He presented to the [facility] last night and underwent imaging studies of the lumbar vertebral bodies and was noted to have extensive metastases. He was found to have spinal cord compression and he was transferred to [facility] for neurosurgical evaluation. His legs are getting progressively weaker. He developed numbness in his chest and lower body. He underwent thoracic and lumbar spine MRI with and without contrast which revealed widespread metastatic disease to the thoracic spine with moderate to severe compression of the thoracic spinal cord at T4. Questionable pathologic fracture of T8 and T7. A lumbar vertebral body MRI with and without contrast revealed additional widespread bony metastatic disease with invasion of the spinal canal at the level of L2. There was extensive tumor extension was noted in the paravertebral soft tissues. Neurosurgical consultation was requested 10/01: When seen this afternoon the patient is awake and alert in bed watching TV. He says he has some pain to the surgical incision otherwise he is doing good. He then said that when he sits up he will feel pain to the upper back. He denies any numbness or tingling to the extremities or the thorax. He denies any headache, dizziness, chest pain, palpitations, irregular heartbeat, shortness of breath, abdominal pain or nausea. He denies any extremity pain. Upon examination the patient's sensation is intact to light touch throughout and he has improved muscle strength to both lower extremities. 10/02: This morning when seen the patient is awake and alert in bed watching TV. He says he is doing good. He denies any pain to the back or the extremities. He also denies any numbness or tingling to the extremities. His neuro exam is without any significant change. 10/03: doing well, legs are getting stronger, surgical pain controlled. 10/04: continues to do well, reports of mild feet swelling. no chest pain or difficulty breathing. pathology pending. (Shanique Rojas) Labs, Micro, & Vital Signs Results Date Time Temp Pulse Resp B/P (MAP) Pulse Ox O2 Delivery O2 Flow Rate FiO2 10/04/17 08:54 97.5 60 18 162/101 (121) 100 10/04/17 05:34 97.4 69 18 140/80 (100) 100 10/04/17 01:20 Room Air 10/04/17 00:28 97.7 60 18 138/90 (106) 98 10/03/17 21:08 97.3 70 18 156/93 (114) 99 10/03/17 17:20 97.6 58 18 159/92 (114) 100 10/03/17 12:00 98.2 82 26 147/86 (106) 100 10/03/17 12:00 82 10/05/17 07:00 Output Total 400 ml Balance -400 ml Constitutional Vital Signs Date Time Temp Pulse Resp B/P (MAP) Pulse Ox O2 Delivery O2 Flow Rate FiO2 10/04/17 08:54 97.5 60 18 162/101 (121) 100 10/04/17 05:34 97.4 69 18 140/80 (100) 100 10/04/17 01:20 Room Air 10/04/17 00:28 97.7 60 18 138/90 (106) 98 10/03/17 21:08 97.3 70 18 156/93 (114) 99 10/03/17 17:20 97.6 58 18 159/92 (114) 100 10/03/17 12:00 98.2 82 26 147/86 (106) 100 10/03/17 12:00 82 10/05/17 07:00 Output Total 400 ml Balance -400 ml (Shanique Rojas) Review of Systems Constitutional: DENIES: Fever, Chills Cardiovascular: DENIES: Chest pain Neurologic: COMPLAINS OF: Abnormal gait, Localized weakness (Shanique Rojas ) Physical Exam Awake & alert. No acute distress. Speech clear & appropriate. Follows commands w/o difficulty. Sensation is intact to light touch lower extremities. Muscle strength: Moves upper extremities well. In lower extremities 4 to 4- major muscle groups bilaterally Wound is healing well, clean and dry. Corky intact. (Shanique Rojas) Medications Current Medications Current Medications Medications (Trade) Dose Ordered Sig/Lynn Route PRN Reason Start Time Stop Time Status Last Admin Dose Admin Sodium Chloride (NS Flush) 2 ml UNSCH PRN IV FLUSH FLUSH AFTER USING IV ACCESS 09/29/17 22:15 Sodium Chloride (NS Flush) 2 ml BID IV FLUSH 09/30/17 09:00 10/04/17 09:00 Ondansetron HCl (Zofran Inj) 4 mg Q6H PRN IVP NAUSEA OR VOMITING 09/29/17 22:15 Naloxone HCl (Narcan Inj) 0.4 mg UNSCH PRN IV PUSH SEE LABEL COMMENTS 09/29/17 22:15 Magnesium Hydroxide (Milk Of Cynthia Licarl) 30 ml Q12H PRN PO Mild constipation 09/29/17 22:15 10/02/17 08:39 Sennosides (Senokot) 17.2 mg Q12H PRN PO Moderate constipation 09/29/17 22:15 10/02/17 16:45 Bisacodyl (Dulcolax Supp) 10 mg DAILY PRN RECTAL SEVERE CONSITIPATION 09/29/17 22:15 Morphine Sulfate (Morphine Inj) 4 mg Q3H PRN IV PUSH breakthrough pain 09/29/17 22:30 10/03/17 21:04 Dexamethasone Sodium Phosphate (Decadron Inj) 4 mg Q6HR IV PUSH 09/30/17 00:00 10/04/17 05:17 Losartan Potassium (Cozaar) 50 mg DAILY PO 09/30/17 09:00 10/04/17 09:02 Insulin Detemir (Levemir Inj) 30 units HS SQ 09/30/17 21:00 10/03/17 21:31 Oxycodone/ Acetaminophen (Percocet 10-325 Mg) 1 tab Q4HR PRN PO pain > 4 09/30/17 03:45 Potassium Chloride/Sodium Chloride 1,000 ml @ 100 mls/hr Q10H IV 09/30/17 18:56 10/04/17 05:17 Docusate Sodium (Colace) 100 mg BID PO 09/30/17 21:00 10/04/17 09:02 Pantoprazole Sodium (Protonix) 40 mg DAILY PO 10/01/17 09:00 10/04/17 09:02 Acetaminophen/ Hydrocodone Bitart ([place] 10-325 Mg) 1 tab Q4H PRN PO PAIN SCALE 1 TO 5 09/30/17 19:00 10/04/17 09:02 Acetaminophen/ Hydrocodone Bitart ([place] 10-325 Mg) 2 tab Q4H PRN PO PAIN SCALE 6 TO 10 09/30/17 19:00 10/04/17 00:55 Morphine Sulfate (Morphine Inj) 2 mg Q2H PRN IV PUSH PAIN SCALE 1 TO 6 09/30/17 19:00 Morphine Sulfate (Morphine Inj) 4 mg Q2H PRN IV PUSH PAIN SCALE 7 TO 10 09/30/17 19:00 10/04/17 05:18 Acetaminophen (Tylenol) 650 mg Q4H PRN PO TEMPERATURE > 101.5 F 09/30/17 19:00 Dextrose (D50w (Vial) Inj) 50 ml UNSCH PRN IV PUSH HYPOGLYCEMIA-SEE COMMENTS 10/01/17 06:00 Glucagon (Glucagon Inj) 1 mg UNSCH PRN OTHER HYPOGLYCEMIA-SEE COMMENTS 10/01/17 06:00 Insulin Aspart (NovoLOG SUPPLEMENTAL SCALE) 1 ACHS SLIDING SCALE SQ 10/01/17 08:00 10/04/17 08:00 (Shanique Rojas) Medical Decision Making MDM Remarks 61 year old male presented with severe thoracic myelopathy with paraparesis MRI Showed spine mass with cord compression at T4 level multilevel bony spine lesions on work up he underwent T4 bilateral laminectomy facetectomy, resection of epidural tumor, T3-T5 arthrodhesis with transpedicular screws and rods, T3-T5 posterolateral fusion using autologous bone graft and demineralized bone matrix 09/30/17 patient is showing improvement in his lower extremity strength (Shanique Rojas) Plan Plan Remarks cont supportive care cont PT, encourage mobilization OOB with assistance TLSO on when out of bed rehab efforts - poss Amin f/u pathology f/u radiation oncology outpatient replace dressing to Optifoam today, not to be removed unless becomes saturated Optifoam dressing to be removed and corky dc on 09/10/17 (Shanique Rojas) Attending Statement The exam, history, and the medical decision-making described in the above note were completed with the assistance of the mid-level provider. I reviewed and agree with the findings presented. I attest that I had a [id number] encounter with the patient on the same day, and personally performed and documented my assessment and findings in the medical record. (Bobo Gillette MD) Shanique Rojas Oct 04, 2017 09:29 Bobo Gillette MD Oct 04, 2017 14:18
[2017-10-04] MEDS ORDERED: HYDR-3583 PO (10:33)
[2017-10-04] MEDS ORDERED: NOVOLOGP2 SQ (10:33)
[2017-10-04] MEDS ORDERED: DEXA4TAB PO (10:43)
[2017-10-04 12:43] VITALS: BP 128/78; PULSE 82; RESP 18; TEMP 97.5; O2SAT 99
[2017-10-04] MEDS ORDERED: OXYC1TAB36 PO (14:46)
[2017-10-04 17:00] VITALS: BP 133/80; PULSE 74; RESP 18; TEMP 97.6; O2SAT 100
--- NOTE | 2017-10-04 17:54 | HHI.PR ---
Subjective Remarks Follow up for metastatic spinal lesions with hemiparesis. Patient underwent neurosurgical intervention on 09/30/2017. Patient is currently doing well. He is tolerating diet well. Wants to go to rehab in [place], [place]. Objective Vitals Vital Signs Date Time Temp Pulse Resp B/P (MAP) Pulse Ox O2 Delivery O2 Flow Rate FiO2 10/04/17 17:00 97.6 74 18 133/80 (97) 100 10/04/17 12:43 97.5 82 18 128/78 (95) 99 10/04/17 10:41 Room Air 10/04/17 08:54 97.5 60 18 162/101 (121) 100 10/04/17 05:34 97.4 69 18 140/80 (100) 100 10/04/17 01:20 Room Air 10/04/17 00:28 97.7 60 18 138/90 (106) 98 10/03/17 21:08 97.3 70 18 156/93 (114) 99 I/O 10/03/17 10/03/17 10/03/17 10/04/17 10/04/17 10/04/17 07:00 15:00 23:00 07:00 15:00 23:00 Intake Total 1720 ml 1000 ml 480 ml Output Total 2935 ml 850 ml 1200 ml 400 ml 600 ml Balance -1215 ml -850 ml -200 ml -400 ml -120 ml Intake Oral 720 ml 480 ml IV Total 1000 ml 1000 ml Output Urine Total 2900 ml 850 ml 1200 ml 400 ml 600 ml Drainage Total 35 ml # Voids 2 # Bowel Movements 2 1 Result Diagram: 10/01/17 0420 10/01/17 0420 Objective Remarks Last Impressions Thoracic Spine X-Ray 09/30/17 0000 Signed Impressions: Service Date/Time: Saturday, September 30, 2017 15:48 - CONCLUSION: Good alignment on this postoperative study. Burton Duncan MD Thoracic Spine CT 09/30/17 0000 Signed Impressions: Service Date/Time: Saturday, September 30, 2017 09:33 - CONCLUSION: Minimal compression deformities at T6, T7 and T8. Known widespread marrow infiltration throughout the thoracic spine is much better visualized on recent MRI. Paravertebral soft tissue mass at T4 results in some degree of spinal stenosis and extends along the lateral aspects of the vertebral body bilaterally. Scoliosis and degenerative changes of the thoracic spine. Michael Cuevas MD Chest X-Ray 09/30/17 0000 Signed Impressions: Service Date/Time: Saturday, September 30, 2017 04:58 - CONCLUSION: 1. Linear atelectasis or scarring at the lung bases. No effusion or pneumothorax. Alberto Moses MD Chest CT 09/30/17 0000 Signed Impressions: Service Date/Time: Saturday, September 30, 2017 09:33 - CONCLUSION: Widespread bony metastatic disease described in detail on MRI of the thoracic and lumbar spine. Sagittal primary is not evident in the chest Minimal bibasilar parenchymal changes Minimal nonspecific axillary adenopathy.. Ant Rod MD FACR Cervical Spine CT 09/30/17 0000 Signed Impressions: Service Date/Time: Saturday, September 30, 2017 09:27 - CONCLUSION: 1. Some mottling of the lower cervical spine. MRI of the cervical spine with and without contrast would be much more sensitive to rule out metastatic disease if clinically indicated. 2. No acute fracture or prevertebral soft tissue swelling. 3. Cervical spondylosis at C5-6, C6-7 and C7-T1. 4. Mild left neural foraminal narrowing at C5-6, C6-7 and C7-T1. Michael Cuevas MD Abdomen/Pelvis CT 09/30/17 0000 Signed Impressions: Service Date/Time: Saturday, September 30, 2017 09:33 - CONCLUSION: Widespread bony metastatic disease. Site of primary is not identified in the abdomen or pelvis. Ant Rod MD FACR Thoracic Spine MRI 09/29/17 0000 Signed Impressions: Service Date/Time: September 23:08 - CONCLUSION: 1. There is widespread metastatic disease to the thoracic spine. At the level of T4 tumor extends into the spinal canal with at least moderate compression on the thoracic cord from the lateral aspect bilaterally. There is also extensive soft tissue tumor in the neural foramina bilaterally and in the paravertebral soft tissues at this level. 2. Questionable mild pathologic fracture of T8 and possibly T7. Alberto Moses MD Lumbar Spine MRI 09/29/17 0000 Signed Impressions: Service Date/Time: September 23:08 - CONCLUSION: 1. Widespread bony metastatic disease to the lumbar spine. There is soft tissue tumor invasion of the spinal canal at L2 with effacement of the lateral recesses bilaterally and encasement of the exiting right L2 nerve root. There is also extension of enhancing tumor into the paravertebral soft tissues. No acute fracture or spondylolisthesis. 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 Martínez is a 61 y/o male with a history of type 2 diabetes mellitus with peripheral neuropathy, hypertension, and hepatitis C (treatment completed 2 years ago) who presented to [facility] [place] for neurosurgical evaluation and treatment of widespread metastatic spinal cancer with hemiparesis. Multiple spinal cord metastases with cord compression with unknown primary site S/p T4 bilateral laminectomy facetectomy, resection of epidural tumor, T3-T5 arthrodesis with transpedicular screws and rods, T3-T5 posterolateral fusion using autologous bone graft and demineralized bone matrix by Dr Gillette on 09/30/17 - Neurosurgery cleared for discharge. Discussed with Oncology who is also okay with discharge. - Decadron 4 mg PO q6h - will continue a tapered Decadron on discharge. - Sula PRN for pain. - Morphine 4 mg IV q3h PRN breakthrough pain Hypertension - resume home losartan 50mg Qday. - monitor trends in blood pressure and adjust treatment as indicated Type 2 DM - continue home Levemir 30 units QHS. - accuchecks AC and HS with low dose Novolog - monitor trends in blood glucose readings and adjust treatments as indicated - PRN hypoglycemia treatment protocol Constipation. Stool softeners/laxatives as need. Full code. SCDs. Discharge plan: [facility] on 10/05/2017. Toribio Valadez DO Oct 04, 2017 17:54
[2017-10-04 20:00] VITALS: BP 135/88; PULSE 69; RESP 18; TEMP 97.5; O2SAT 95
[2017-10-04] MEDS: MORPHINE SULFATE 2 MG/ML INJ IV PUSH PRN (20:48)
[2017-10-04] MEDS: DEXAMETHASONE 4 MG TAB PO SCH (20:49)
[2017-10-04] MEDS ORDERED: DEXAMETHASONE 4 MG TAB PO SCH (21:00)
[2017-10-04] MEDS: INSULIN DETEMIR 100 UNITS/ML VIAL SQ SCH (21:45)
[2017-10-05 01:00] VITALS: BP 116/67; PULSE 67; RESP 18; TEMP 98; O2SAT 94
[2017-10-05] MEDS: ACETAMINOPHEN/HYDROcodone 325 MG/10 MG TAB PO PRN ×2 (01:32→09:01)
[2017-10-05] MEDS: DEXAMETHASONE 4 MG TAB PO SCH ×2 (03:54→09:00)
[2017-10-05] MEDS: MORPHINE SULFATE 2 MG/ML INJ IV PUSH PRN (03:54)
[2017-10-05 04:00] VITALS: BP 149/89; PULSE 62; RESP 18; TEMP 99.9; O2SAT 99
[2017-10-05] MEDS: INSULIN ASPART SUPPLEMENTAL SCALE SQ SCH (08:00)
[2017-10-05] MEDS: LOSARTAN 50 MG TAB PO SCH (09:00)
[2017-10-05] MEDS: SODIUM CHLORIDE 0.9% FLUSH 10 ML FLUSH IV FLUSH SCH (09:00)
[2017-10-05] MEDS: DOCUSATE SODIUM 100 MG CAP PO SCH (09:00)
[2017-10-05] MEDS: PANTOPRAZOLE SOD 40 MG DELAYED RELEASE TAB PO SCH (09:00)
--- NOTE | 2017-10-05 09:33 | HHI.DS ---
Discharge Summary Admission Date Sep 29, 2017 at 9:30 pm Discharge Date: Oct 05, 2017 Admitting Diagnosis Spinal Metastatic Cancer with hemiparesis . 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 Martínez is a 61 y/o male with a history of type 2 diabetes mellitus with peripheral neuropathy, hypertension, and hepatitis C (treatment completed 2 years ago) who presented to [facility] in transfer from [facility] in [place] for neurosurgical evaluation and treatment of widespread metastatic spinal cancer with hemiparesis. The patient is seen in his hospital room. He reports severe 10/10 back pain that radiates around to his chest that is unrelieved by p.o. Comfort. He states that his symptoms began one month ago with back pain radiating around to his chest. His symptoms persisted until he developed an inability to ambulate one week ago and he started to seek treatment at [facility]. He states they could not find anything wrong with him. He went to [facility] on Tuesday and was diagnosed with a "left lung infection" and given antibiotics. He says he returned to [place] on Tuesday because he was still too weak to walk. On Tuesday, he was admitted. He states that no one knows what is wrong with him. He denies fever, chills, nausea, vomiting, diarrhea, abdominal pain, urinary or fecal incontinence. He reports he had constipation on Tuesday and it was relieved with laxatives on Tuesday. He reports a 25 pound weight loss that is unintentional over the past 2 months. CBC/BMP: 10/01/17 0420 10/01/17 0420 Significant Findings Laboratory Tests Test 10/04/17 15:38 Imaging Last Impressions Thoracic Spine X-Ray 09/30/17 0000 Signed Impressions: Service Date/Time: Saturday, September 30, 2017 15:48 - CONCLUSION: Good alignment on this postoperative study. Burton Duncan MD Thoracic Spine CT 09/30/17 0000 Signed Impressions: Service Date/Time: Saturday, September 30, 2017 09:33 - CONCLUSION: Minimal compression deformities at T6, T7 and T8. Known widespread marrow infiltration throughout the thoracic spine is much better visualized on recent MRI. Paravertebral soft tissue mass at T4 results in some degree of spinal stenosis and extends along the lateral aspects of the vertebral body bilaterally. Scoliosis and degenerative changes of the thoracic spine. Michael Cuevas MD Chest X-Ray 09/30/17 0000 Signed Impressions: Service Date/Time: Saturday, September 30, 2017 04:58 - CONCLUSION: 1. Linear atelectasis or scarring at the lung bases. No effusion or pneumothorax. Alberto Moses MD Chest CT 09/30/17 0000 Signed Impressions: Service Date/Time: Saturday, September 30, 2017 09:33 - CONCLUSION: Widespread bony metastatic disease described in detail on MRI of the thoracic and lumbar spine. Sagittal primary is not evident in the chest Minimal bibasilar parenchymal changes Minimal nonspecific axillary adenopathy.. Ant Rod MD FACR Cervical Spine CT 09/30/17 0000 Signed Impressions: Service Date/Time: Saturday, September 30, 2017 09:27 - CONCLUSION: 1. Some mottling of the lower cervical spine. MRI of the cervical spine with and without contrast would be much more sensitive to rule out metastatic disease if clinically indicated. 2. No acute fracture or prevertebral soft tissue swelling. 3. Cervical spondylosis at C5-6, C6-7 and C7-T1. 4. Mild left neural foraminal narrowing at C5-6, C6-7 and C7-T1. Michael Cuevas MD Abdomen/Pelvis CT 09/30/17 0000 Signed Impressions: Service Date/Time: Saturday, September 30, 2017 09:33 - CONCLUSION: Widespread bony metastatic disease. Site of primary is not identified in the abdomen or pelvis. Ant Rod MD FACR Thoracic Spine MRI 09/29/17 Signed Impressions: Service Date/Time: September 23:08 - CONCLUSION: 1. There is widespread metastatic disease to the thoracic spine. At the level of T4 tumor extends into the spinal canal with at least moderate compression on the thoracic cord from the lateral aspect bilaterally. There is also extensive soft tissue tumor in the neural foramina bilaterally and in the paravertebral soft tissues at this level. 2. Questionable mild pathologic fracture of T8 and possibly T7. Alberto Moses MD Lumbar Spine MRI 09/29/17 Signed Impressions: Service Date/Time: September 23:08 - CONCLUSION: 1. Widespread bony metastatic disease to the lumbar spine. There is soft tissue tumor invasion of the spinal canal at L2 with effacement of the lateral recesses bilaterally and encasement of the exiting right L2 nerve root. There is also extension of enhancing tumor into the paravertebral soft tissues. No acute fracture or spondylolisthesis. Alberto Moses MD PE at Discharge Last Impressions Thoracic Spine X-Ray 09/30/17 Signed Impressions: Service Date/Time: Saturday, September 30, 2017 15:48 - CONCLUSION: Good alignment on this postoperative study. Burton Duncan MD Thoracic Spine CT 09/30/17 Signed Impressions: Service Date/Time: Saturday, September 30, 2017 09:33 - CONCLUSION: Minimal compression deformities at T6, T7 and T8. Known widespread marrow infiltration throughout the thoracic spine is much better visualized on recent MRI. Paravertebral soft tissue mass at T4 results in some degree of spinal stenosis and extends along the lateral aspects of the vertebral body bilaterally. Scoliosis and degenerative changes of the thoracic spine. Michael Cuevas MD Chest X-Ray 09/30/17 0000 Signed Impressions: Service Date/Time: Saturday, September 30, 2017 04:58 - CONCLUSION: 1. Linear atelectasis or scarring at the lung bases. No effusion or pneumothorax. Alberto Moses MD Chest CT 09/30/17 0000 Signed Impressions: Service Date/Time: Saturday, September 30, 2017 09:33 - CONCLUSION: Widespread bony metastatic disease described in detail on MRI of the thoracic and lumbar spine. Sagittal primary is not evident in the chest Minimal bibasilar parenchymal changes Minimal nonspecific axillary adenopathy.. Ant Rod MD FACR Cervical Spine CT 09/30/17 Signed Impressions: Service Date/Time: Saturday, September 30, 2017 09:27 - CONCLUSION: 1. Some mottling of the lower cervical spine. MRI of the cervical spine with and without contrast would be much more sensitive to rule out metastatic disease if clinically indicated. 2. No acute fracture or prevertebral soft tissue swelling. 3. Cervical spondylosis at C5-6, C6-7 and C7-T1. 4. Mild left neural foraminal narrowing at C5-6, C6-7 and C7-T1. Michael Cuevas MD Abdomen/Pelvis CT 09/30/17 0000 Signed Impressions: Service Date/Time: Saturday, September 30, 2017 09:33 - CONCLUSION: Widespread bony metastatic disease. Site of primary is not identified in the abdomen or pelvis. Ant Rod MD FACR Thoracic Spine MRI 09/29/17 0000 Signed Impressions: Service Date/Time: September 23:08 - CONCLUSION: 1. There is widespread metastatic disease to the thoracic spine. At the level of T4 tumor extends into the spinal canal with at least moderate compression on the thoracic cord from the lateral aspect bilaterally. There is also extensive soft tissue tumor in the neural foramina bilaterally and in the paravertebral soft tissues at this level. 2. Questionable mild pathologic fracture of T8 and possibly T7. Alberto Moses MD Lumbar Spine MRI 09/29/17 0000 Signed Impressions: Service Date/Time: September 23:08 - CONCLUSION: 1. Widespread bony metastatic disease to the lumbar spine. There is soft tissue tumor invasion of the spinal canal at L2 with effacement of the lateral recesses bilaterally and encasement of the exiting right L2 nerve root. There is also extension of enhancing tumor into the paravertebral soft tissues. No acute fracture or spondylolisthesis. Alberto Moses MD Pt update on day of discharge Patient is doing well. No acute concerns. Tolerating diet well. Hospital Course Mr. Martínez is a 61 y/o male with a history of type 2 diabetes mellitus with peripheral neuropathy, hypertension, and hepatitis C (treatment completed 2 years ago) who presented to [facility] in transfer from [facility] in [place] for neurosurgical evaluation and treatment of widespread metastatic spinal cancer with hemiparesis. Multiple spinal cord metastases with cord compression with unknown primary site S/p T4 bilateral laminectomy facetectomy, resection of epidural tumor, T3-T5 arthrodesis with transpedicular screws and rods, T3-T5 posterolateral fusion using autologous bone graft and demineralized bone matrix by Dr Gillette on 09/30/17 - Neurosurgery cleared for discharge. Discussed with Oncology who is also okay with discharge. - Decadron 4 mg PO q6h - will continue a tapered Decadron on discharge. - Comfort PRN for pain. - Morphine 4 mg IV q3h PRN breakthrough pain Hypertension - resume home losartan 50mg Qday. - monitor trends in blood pressure and adjust treatment as indicated Type 2 DM - continue home Levemir 30 units QHS. - accuchecks AC and HS with low dose Novolog - monitor trends in blood glucose readings and adjust treatments as indicated - PRN hypoglycemia treatment protocol Constipation. Stool softeners/laxatives as need. Full code. SCDs. We initially recommended patient to consider In patient rehab [facility]. However, he wanted to be closer to his family. Thus, he was discharged to SNF in [place], [place]. Pt Condition on Discharge: Good Discharge Disposition: Discharge to SNF Discharge Time: > 30 minutes Discharge Instructions DIET: Follow Instructions for: Diabetic Diet Activities you can perform: Regular-No Restrictions New Medications: Dexamethasone (Dexamethasone) 4 Mg Tab 4 MG PO Q6HR for Inflammation, #30 TAB 0 Refills Take Dexamethasone 4mg 1 tablet Q6hrs X 3 days THEN 1 tablet Q8hrs X 3 days then 1 tablet Q12hrs x 3 days then 1 tablet Qday X 3 days then stop. Insulin Aspart Inj (Novolog Inj) 1,000 Unit/10 Ml Vial 1-9 UNITS SQ ACHS for Blood Sugar Management, #10 ML 0 Refills Max dose at bedtime:( )units; sugars less than 70,(0)units; sugars 150-199,(1) unit; sugars 200-249,(3) units; sugars 250-299,(5) units; sugars 300-349,(7) units; sugars greater than 349,(9) units Hydrocodone/Acetaminophen (Hydrocodone-Acetamin 10-325 mg) 10 Mg-325 Mg Tablet 1 TAB PO Q4H PRN for PAIN SCALE 5 TO 10, #20 TAB Oxycodone HCl/Acetaminophen (Oxycodone-Acetaminophen 10-325) 10 Mg-325 Mg Tablet 1 TAB PO Q6 PRN for pain > 4 for 5 Days, #20 TAB 0 Refills Continued Medications: Insulin Detemir Inj (Levemir Flextouch Pen Inj) 300 unit/3 ML Pen 30 UNITS SQ HS for Blood Sugar Management, PEN 0 Refills Losartan (Losartan) 50 Mg Tab 50 MG PO DAILY for Blood Pressure Management, #30 TAB 0 Refills Toribio Valadez DO Oct 05, 2017 09:33
[2017-10-05 10:30] LABS: HEPATITIS A AB IGM NEGATIVE (NEGATIVE); HEPATITIS B CORE AB IGM NEGATIVE (NEGATIVE); HEPATITIS B SURFACE ANTIGEN NEGATIVE (NEGATIVE); HEPATITIS C AB IgG REACTIVE (NEGATIVE)
== END 2017-10-05 10:09 | DRG 29 ==
LOC: N03A 21:30 → N05B 10-03 16:39
PROVIDERS: ADMIT Hospitalist; ATTEND Hospitalist
PROC: 00BX0ZX Excision of Thoracic Spinal Cord, Open Approach, Diagnostic (ICD-10-PCS; 2017-09-30)
PROC: 0RG7071 Fusion of 2 to 7 Thoracic Vertebral Joints with Autologous Tissue Substitute, Posterior Approach, Posterior Column, Open Approach (ICD-10-PCS; principal; 2017-09-30 12:48)
DX: C79.49 Secondary malignant neoplasm of other parts of nervous system (principal); C79.51 Secondary malignant neoplasm of bone; C85.99 Non-Hodgkin lymphoma, unspecified, extranodal and solid organ sites; G82.22 Paraplegia, incomplete; D62 Acute posthemorrhagic anemia; G95.20 Unspecified cord compression; G81.90 Hemiplegia, unspecified affecting unspecified side; E11.42 Type 2 diabetes mellitus with diabetic polyneuropathy; M48.04 Spinal stenosis, thoracic region; I10 Essential (primary) hypertension; B19.20 Unspecified viral hepatitis C without hepatic coma; R63.4 Abnormal weight loss; M25.569 Pain in unspecified knee; R74.8 Abnormal levels of other serum enzymes; Z72.0 Tobacco use; K59.00 Constipation, unspecified; Z79.4 Long term (current) use of insulin
CPT/HCPCS: 71045; 71260; 72020; 72125; 72129; 72157; 72158; 74177; 76000; 80048; 80053; 80074; 82948; 84153; 85025; 85027; 86850; 86900; 86901; 86920; 87641; 88307; 88311; 88331; 88341; 88342; 93005; 94002; 94150; A9579; C1713; J0131; J0690; J1100; J1170; J1580; J1815; J1817; J2250; J2270; J2370; J2405; J2710; J3010; J3370; J3480; J7030; J8540; L0484; Q9967